=== PATIENT | female | born 1970 | race Caucasian/White ===

== ENCOUNTER → 2018-12-16 22:33 | Outpatient (CLI) | payer BC, SELFPAY ==
[2018-12-16 23:02] LABS: Thyroid Stim Hormone (TSH) 2.43 uIU/mL (0.358-3.74)
== END ==
PROVIDERS: Family Provider Family Medicine; PCP Family Medicine; Referring Provider Nurse Practitioner; Visit Provider Nurse Practitioner
DX: E03.9 Hypothyroidism, unspecified (principal)
CPT/HCPCS: 84443

== ENCOUNTER → 2020-01-20 | Outpatient (CLI) | payer BC, SELFPAY ==
[2020-01-20 21:28] LABS: Thyroid Stim Hormone (TSH) 1.39 uIU/mL (0.358-3.74)
== END | disposition home or self-care (01) ==
PROVIDERS: PCP Family Medicine; Referring Provider Nurse Practitioner; Visit Provider Nurse Practitioner
DX: E03.9 Hypothyroidism, unspecified (principal)
CPT/HCPCS: 84443

== ENCOUNTER → 2020-07-05 | Outpatient (CLI) | payer BC, SELFPAY ==
[2020-07-05 16:12] VITALS: BMI 26.0
[2020-07-05 22:06] LABS: Absolute Lymphocyte Count 2.24 X10^3/uL (0.83-4.51); Absolute Neutrophil Count 3.1 X10^3/uL (2.0-7.7); Basophil# 0.05 X10^3/uL; Basophil% 0.8 % (0-1); Eosinophil# 0.15 X10^3/uL; Eosinophils% 2.5 % (0-5); Hematocrit 42.7 % (37-47); Hemoglobin 14.2 g/dL (12.0-15.0); Lymphocyte # 2.24 X10^3/ul (4.0); Lymphocyte % 37.7 % (19-41); Mean Corp Hgb Conc 33.3 g/dL (32-36); Mean Corpuscular Volume 90.1 fL (81-99); Mean Platelet Vol. 10.1 fl (6.2-12.0); Monocyte# 0.37 X10^3/uL; Monocyte% 6.2 % (0-10); NRBC Flagged by Analyzer 0 % (0-5); Neutrophil % 52.3 % (47-70); Platelet Count 251 K/mm3 (150-450); RBC Distribution Width CV 12.6 % (11.6-14.6); RBC Distribution Width SD 41.3 fl (35.1-43.9); Red Blood Count 4.74 M/mm3 (4.2-5.4); White Blood Count 5.9 K/mm3 (4.4-11.0)
[2020-07-05 22:29] LABS: ALB/GLOB Ratio 1.2 RATIO (0.9-2.4); AST(SGOT) 23 U/L (15-37); Alanine Aminotransfer ALT/SGPT 32 U/L (13-56); Albumin, Serum 4.2 g/dL (3.2-5.0); Alkaline Phosphatase 104 U/L (45-117); Anion Gap 8 (5-15); BUN 14 mg/dL (7-18); BUN/Creat Ratio 16.6 RATIO (10-20); Calcium,Total 9.6 mg/dL (8.5-10.1); Chloride 106 mmol/L (98-107); Cholesterol 287 mg/dL (200); Creatinine, Serum 0.84 mg/dL (0.55-1.02); EST Glomerular Filtration Rate 76 mL/min (>60); Est Glom Filt Rate - Afr Amer 92 mL/min (>60); Globulin 3.5 g/dL (2.2-4.2); Glucose 91 mg/dL (74-106); High Density Lipoprotein 50 mg/dL; Protein, Total 7.7 g/dL (6.4-8.2); Sodium Level 139 mmol/L (136-145); Thyroid Stim Hormone (TSH) 1.41 uIU/mL (0.358-3.74); Triglycerides 247 mg/dL; Very Low Density Lipoprotein 49 mg/dL (5-40)
== END | disposition home or self-care (01) ==
PROVIDERS: PCP Family Medicine; Visit Provider Nurse Practitioner
DX: I10 Essential (primary) hypertension (principal); E03.9 Hypothyroidism, unspecified
CPT/HCPCS: 80053; 80061; 84443; 85025

== ENCOUNTER → 2021-01-24 21:27 | Outpatient (CLI) | payer BC, SELFPAY ==
[2021-01-24 16:15] VITALS: BMI 25.1
[2021-01-24 21:56] LABS: Cholesterol 259 mg/dL (200); High Density Lipoprotein 48 mg/dL; Thyroid Stim Hormone (TSH) 1.39 uIU/mL (0.358-3.74); Triglycerides 277 mg/dL; Very Low Density Lipoprotein 55 mg/dL (5-40)
== END ==
PROVIDERS: PCP Family Medicine; Visit Provider Nurse Practitioner
DX: E78.5 Hyperlipidemia, unspecified (principal); E03.9 Hypothyroidism, unspecified
CPT/HCPCS: 80061; 84443

== ENCOUNTER → 2022-01-23 | Outpatient (CLI) | payer BC, SELFPAY ==
[2022-01-23 21:29] LABS: Absolute Lymphocyte Count 1.91 X10^3/uL (0.83-4.51); Absolute Neutrophil Count 2.9 X10^3/uL (2.0-7.7); Basophil# 0.04 X10^3/uL; Basophil% 0.8 % (0-1); Eosinophil# 0.09 X10^3/uL; Eosinophils% 1.7 % (0-5); Hematocrit 42.9 % (37-47); Hemoglobin 14.4 g/dL (12.0-15.0); Lymphocyte # 1.91 X10^3/ul (0.83-4.51); Lymphocyte % 35.9 % (19-41); Mean Corp Hgb Conc 33.6 g/dL (32-36); Mean Corpuscular Hgb 30.2 pg (27.0-32.0); Mean Corpuscular Volume 89.9 fL (81-99); Mean Platelet Vol. 9.9 fl (6.2-12.0); Monocyte# 0.36 X10^3/uL; Monocyte% 6.8 % (0-10); NRBC Flagged by Analyzer 0 % (0-5); Neutrophil # 2.89 X10^3/uL (2.7-7.7); Neutrophil % 54.2 % (47-70); Platelet Count 228 K/mm3 (150-450); RBC Distribution Width CV 12.8 % (11.6-14.6); RBC Distribution Width SD 41.8 fl (35.1-43.9); Red Blood Count 4.77 M/mm3 (4.2-5.4); White Blood Count 5.3 K/mm3 (4.4-11.0)
[2022-01-23 22:26] LABS: ALB/GLOB Ratio 1.2 RATIO (0.9-2.4); AST(SGOT) 23 U/L (15-37); Alanine Aminotransfer ALT/SGPT 38 U/L (13-56); Albumin, Serum 4.4 g/dL (3.2-5.0); Alkaline Phosphatase 95 U/L (45-117); Anion Gap 8 (5-15); BUN 19 mg/dL (7-18); BUN/Creat Ratio 20.5 RATIO (10-20); Calcium,Total 9.3 mg/dL (8.5-10.1); Chloride 105 mmol/L (98-107); Cholesterol 196 mg/dL (200); Creatinine, Serum 0.93 mg/dL (0.55-1.02); EST Glomerular Filtration Rate 68 mL/min (>60); Est Glom Filt Rate - Afr Amer 82 mL/min (>60); Globulin 3.7 g/dL (2.2-4.2); Glucose 97 mg/dL (74-106); High Density Lipoprotein 57 mg/dL; Potassium 3.6 mmol/L (3.5-5.1); Protein, Total 8.1 g/dL (6.4-8.2); Sodium Level 139 mmol/L (136-145); Triglycerides 194 mg/dL; Very Low Density Lipoprotein 39 mg/dL (5-40)
== END | disposition home or self-care (01) ==
PROVIDERS: PCP Family Medicine; Referring Provider Nurse Practitioner; Visit Provider Nurse Practitioner
DX: I10 Essential (primary) hypertension (principal); E03.9 Hypothyroidism, unspecified
CPT/HCPCS: 80053; 80061; 84443; 85025

== ENCOUNTER → 2022-06-07 | Outpatient (CLI) | payer BC, SELFPAY ==
--- NOTE | 2022-06-07 12:50 | BI_ITS ---
MAMMOGRAPHY - UNILATERAL SCREENING: LEFT BREAST REASON FOR EXAM: Female, 51 years old. Routine annual screening examination (unilateral). PERTINENT HISTORY: Non-contributory. TECHNIQUE: Digital unilateral breast lionel (3D mammographic acquisition) in the CC and MLO projections. 2-D mediolateral oblique (MLO) and craniocaudad (CC) views of both breasts were obtained. CAD: Full Field Digital Mammography with Computer Added Detection was performed. COMPARISON: Comparison is made with prior study dated 09/23/2010. FINDINGS: Breast Composition: The breasts are heterogeneously dense, which may obscure small masses. There are no dominant masses or suspicious calcifications. Stable small benign-appearing bilateral axillary No other significant abnormalities are identified. There has been no significant change since the prior study. BI/SCREEN MAMM (CAD) W/LIONEL UNI L IMPRESSION: Stable unilateral screening mammogram. Yearly follow-up mammogram recommended. (A) ASSESSMENT CATEGORY: BIRADS Category 2: Benign. A letter regarding these results will be sent to the patient by the facility within 30 days. Approximately 10% of breast cancers are not detected by mammography. A normal mammogram should not delay biopsy of a clinically suspicious abnormality. [id number] Electronically Signed: Dominick Roman MD at 15:21 EDT ,
== END | disposition home or self-care (01) ==
LOC: OPBI 12:48
PROVIDERS: PCP Family Medicine; Referring Provider Nurse Practitioner; Visit Provider Nurse Practitioner
DX: Z12.31 Encounter for screening mammogram for malignant neoplasm of breast (principal)
CPT/HCPCS: 77063; 77067

== ENCOUNTER 2022-09-11 13:00 | Outpatient (RCR) | payer BC, SELFPAY ==
--- NOTE | 2022-07-03 15:50 | HP.OTEVAL ---
Patient's Visit Information DORA BROWNING is a 51 year old F, referred to Occupational Therapy by Dr. Juan Myrick MD, with a diagnosis of Unilateral osteoarthritis R hand. Date of Evaluation: 07/03/22 Occupational Therapist: Farnaz Khan - Subjective Dora arrived on time for her initial occupational evaluation s/p R CMC arthoplasty 06/22/[address] Juan Myrick. Dora presents with mild pain (4/10), some stiffness and bruising in the CMC and hand region, and some mild numbness that is extending through the fingers. Dora lives with her son and , her son has been helping her as needed during the day. She is currently not working. 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 She reports she has a 4-5 hr job at one house and a 2 hour job at another house. - ADLs Comments: Dora is completing self care mostly with modified independence. Her son assists as needed with things around the house, opening containers, cooking, laundry, etc. - Pain R CMC 4 - Objective Dora presents with some swelling and bruising in the R hand/wrist region. Her incision is closed and no signs of redness or irritation around the incision site. 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 L tripod: 9. L pincer: 7. L lateral: 12 - Edema PIP: 3rd digit R 6.3 cm; 3rd digit L 5.7cm Other: circumference R MCP 16.5cm; L MCP 16cm - Sensation Sensation Comments: reports some numbness in R hand/wrist region that extends through the fingers - Quick DASH-Disab of Arm,Shoulder& Hand Quick DASH Score: 75.0000 - Goals Goal:100% adherence to protocol: Yes Comment: Dr. Juan Myrick CMC arthoplasty protocol Goal:Daily scar massage when approriate: Yes Goal:ROM equal to unaffected hand: Yes Goal:Lard Bleacher/Pinch strength at least 75% of unaffected hand: Yes Comment: strengthening to be initiated when appropriate given Dr. Myrick protocol Goal:No pain with affected hand use: Yes Goal:PIP Circumferences equal to unaffected hand: Yes Goal:Full use of affected hand in daily activities including: Yes Goal:Decrease scar hypersensitivity: Yes - Rehabilitation General Assessment: Dora presents ~ 2 weeks s/p R CMC arthoplasty. She arrived in a thermoplastic brace that she has been wearing all the time. She presents with stiffness and soreness in the R wrist/hand region and some difficulty completing daily activities d/t restrictions of use of R wrist. She has decreased range of motion and strength in her right hand and wrist. She participated in the evaluation to assess baseline range of motion, edema, and strength. She was provided a home exercise program and education on protocol for recovery from this surgery. She will be scheduled 1x/week for 12 weeks. Rehabilitation Potential: Good - Anticipated Interventions A/AAROM/PROM, Strengthening, Edema Control, Scar Care, Massage, Desensitization, Sensory Retraining, Orthoses, Joint Protection/Energy Conservation, Fine Motor Coord/Chavo, ADL Training, Home Program - Visit Plan Frequency: 1x/Week Duration: 3 Months General Plan: provided HEP with instruction to complete gentle wrist and hand ROM, recommend 6-8x/day. Rec to do something with the hand or wrist every hour to move it gently. Work the HEP on the table with gravity eliminated position of the wrist for a more gentle position. Cont HEP daily, gentle ROM, and splint wear. Will progress to more range of motion and strengthening when appropriate per CMC arthoplasty protocol. Will re-assess for comfort cool brace later in her recovery. TEXT: Thank you for the opportunity to evaluate your patient. For Medicare and Medicare HMO plans, please review the plan of care and approve it. It will need to be FAXED BACK to us at [phone] for Medicare purposes. Please let me know if there are questions or concerns regarding this plan of care. Physician Signature: Date:
--- NOTE | 2022-08-02 14:07 | OTREVAL_ITS ---
Dr. Juan Myrick MD, It has been my pleasure to treat DORA BROWNING over the last 6 visits for Unilateral osteoarthritis R hand. Please see the progress note below for an update on the occupational therapy plan of care! Subjective: Arrived s/p 6 weeks and 6 days past CMC arthoplasty. Continues to work 2-3 hours/week. Still having rawness and soreness around the incision site. Has f/u with physician tomorrow 08/03/22. Objective/Function: Patient consistently coming to therapy and being compliant with therapy. She is consistently reporting some rawness/skin sensitivity at the incision site, unable to wear the comfort cool brace due to discomfort. She reports feeling some sharp/shooting pain through the thumb and the middle of the wrist at times, especially in the evenings. She is making slow progress with her wrist and thumb range of motion. R wrist active flexion 30/extension 28 (~5-10 deg improvement from last visit). Thumb MP active flexion 40 deg and IP active flexion 45. Stiffness through the CMC and unable to oppose to 5th digit. Provided with home exercise program and instruction on safe ways to move hand/wrist to improve ROM and stiffness including starting some light weight/resistance within her tolerance. Working in therapy on improving range of motion, stiffness, and beginning strengthening. Plan Frequency: 1x/Week Duration: 3 Months Visits in this POC: no limit with medical necessity Plan: follow Dr. Myrick CMC arthroplasty guide. 2weeks s/p custom thumb spica IPJ free. scar care, full finger ROM, full wrist ROM , MP and IPJ motion of thumb, Opposition to small finger while supporting CMC to prevent rocking at base of thumb and hand flat. 4wks s/p PROM cmc motion. 5-6wks pre-layne thumb orthotic daytime use -custom orthosis use and night and with heavy activity until 12 weeks s/p. 6-7wks strengthening. at [address] jeffery full finger & wrist motion- hand flat and opposition to small finger between DIPJ & PIPJ. Discontinue custom orthosis use at 12 weeks Goals - Goals Patient Goals: Regain Strength, Return to Work, Decrease Swelling/Stiffness, Improve Fine Motor Skills, Use Hand/Wrist/Arm Normally Again, Decrease Tingling/Numbness, Learn to Manage Lymphedema, Increase ROM, Be More Independent in ADLS, Decrease Sensitivity, Resume Former Household Responsibilities (Cooki ng,Cleaning,Yard, etc.), Resume Hobbies Goal:100% adherence to protocol: Yes Goal:Daily scar massage when approriate: Yes Goal:ROM equal to unaffected hand: Yes Goal:Campus Administrator/Pinch strength at least 75% of unaffected hand: Yes Goal:No pain with affected hand use: Yes Goal:PIP Circumferences equal to unaffected hand: Yes Goal:Full use of affected hand in daily activities including: Yes Goal:Decrease scar hypersensitivity: Yes Anticipated Interventions Anticipated Interventions: A/AAROM/PROM, Strengthening, Edema Control, Scar Care, Massage, Desensitization, Sensory Retraining, Orthoses, Joint Protection/Energy Conservation, Fine Motor Coord/Chavo, ADL Training, Home Program Please do not hesitate to contact me at [phone] by phone or if you have questions or concerns regarding this new plan of care! Sincerely, Farnaz Khan
--- NOTE | 2022-12-11 16:18 | HP.OT.NRP ---
DORA Hill DONNA BROWNING was seen in my office for initial evaluation on 07/03/22. The following Plan of Care was established for this patient: Initial Frequency: 1x/Week Initial Duration: 3 Months Plan: follow Dr. Myrick CMC arthroplasty guide. 2weeks s/p custom thumb spica IPJ free. scar care, full finger ROM, full wrist ROM , MP and IPJ motion of thumb, Opposition to small finger while supporting CMC to prevent rocking at base of thumb and hand flat. 4wks s/p PROM cmc motion. 5-6wks pre-layne thumb orthotic daytime use -custom orthosis use and night and with heavy activity until 12 weeks s/p. 6-7wks strengthening. at [address] jeffery full finger & wrist motion- hand flat and opposition to small finger between DIPJ & PIPJ. Discontinue custom orthosis use at 12 weeks Anticipated Interventions: A/AAROM/PROM, Strengthening, Edema Control, Scar Care, Massage, Desensitization, Sensory Retraining, Orthoses, Joint Protection/Energy Conservation, Fine Motor Coord/Chavo, ADL Training, Home Program This patient was last seen in our office 09/11/22. Pertinent comments regarding their Occupational therapy will appear below: Patient last seen in September and no showed final appt. Patient has not reached out to clinic to reschedule or for any follow up appointments. Patient discharged from OT at this time. At this point I will be discontinuing this patient from occupational therapy. I would be happy to see this patient again in the future if found appropriate by the physician. Thank you! Farnaz Khan
== END 2022-09-11 19:00 | disposition home or self-care (01) ==
LOC: OT 13:00
PROVIDERS: PCP Nurse Practitioner; Referring Provider Orthopaedic Surgery; Visit Provider Orthopaedic Surgery
DX: M18.11 Unilateral primary osteoarthritis of first carpometacarpal joint, right hand (principal)
CPT/HCPCS: 97035; 97110; 97140; 97165; 97530; 97763

== ENCOUNTER → 2023-01-22 | Outpatient (CLI) | payer BC, SELFPAY ==
[2023-01-22 22:57] LABS: Absolute Lymphocyte Count 2.35 X10^3/uL (0.83-4.51); Absolute Neutrophil Count 3.1 X10^3/uL (2.0-7.7); Basophil# 0.07 X10^3/uL; Basophil% 1.1 % (0-1); Eosinophils% 1.6 % (0-5); Hematocrit 42.3 % (37-47); Lymphocyte # 2.35 X10^3/ul (0.83-4.51); Mean Corp Hgb Conc 33.1 g/dL (32-36); Mean Corpuscular Hgb 30.2 pg (27.0-32.0); Mean Corpuscular Volume 91.4 fL (81-99); Monocyte# 0.49 X10^3/uL; Monocyte% 7.9 % (0-10); NRBC Flagged by Analyzer 0 % (0-5); Neutrophil # 3.11 X10^3/uL (2.7-7.7); Neutrophil % 50.4 % (47-70); Platelet Count 252 K/mm3 (150-450); RBC Distribution Width CV 12.6 % (11.6-14.6); RBC Distribution Width SD 41.6 fl (35.1-43.9); Red Blood Count 4.63 M/mm3 (4.2-5.4); White Blood Count 6.2 K/mm3 (4.4-11.0)
[2023-01-22 23:16] LABS: ALB/GLOB Ratio 1.3 RATIO (0.9-2.4); AST(SGOT) 22 U/L (15-37); Alanine Aminotransfer ALT/SGPT 34 U/L (13-56); Albumin, Serum 4.3 g/dL (3.2-5.0); Alkaline Phosphatase 89 U/L (45-117); Anion Gap 6 (5-15); BUN 16 mg/dL (7-18); BUN/Creat Ratio 22.5 RATIO (10-20); Calcium,Total 9.4 mg/dL (8.5-10.1); Chloride 105 mmol/L (98-107); Cholesterol 181 mg/dL (200); Creatinine, Serum 0.71 mg/dL (0.55-1.02); EST Glomerular Filtration Rate 91 mL/min (>60); Est Glom Filt Rate - Afr Amer 111 mL/min (>60); Globulin 3.4 g/dL (2.2-4.2); Glucose 91 mg/dL (74-106); High Density Lipoprotein 58 mg/dL; Potassium 4.4 mmol/L (3.5-5.1); Protein, Total 7.7 g/dL (6.4-8.2); Sodium Level 139 mmol/L (136-145); Thyroid Stim Hormone (TSH) 1.04 uIU/mL (0.358-3.74); Triglycerides 94 mg/dL; Very Low Density Lipoprotein 19 mg/dL (5-40)
== END | disposition home or self-care (01) ==
PROVIDERS: PCP Nurse Practitioner; Visit Provider Nurse Practitioner
DX: E03.9 Hypothyroidism, unspecified (principal); I10 Essential (primary) hypertension
CPT/HCPCS: 80053; 80061; 84443; 85025

== ENCOUNTER → 2024-01-28 | Outpatient (CLI) | payer BC, SELFPAY ==
[2024-01-28 22:22] LABS: Absolute Lymphocyte Count 1.84 X10^3/uL (0.83-4.51); Absolute Neutrophil Count 3.6 X10^3/uL (2.0-7.7); Basophil# 0.04 X10^3/uL; Basophil% 0.7 % (0-1); Eosinophil# 0.12 X10^3/uL; Hemoglobin 13.4 g/dL (12.0-15.0); Lymphocyte # 1.84 X10^3/ul (0.83-4.51); Lymphocyte % 30.6 % (19-41); Mean Corp Hgb Conc 33.5 g/dL (32-36); Mean Corpuscular Volume 89.7 fL (81-99); Mean Platelet Vol. 10.2 fl (6.2-12.0); Monocyte# 0.42 X10^3/uL; NRBC Flagged by Analyzer 0 % (0-5); Neutrophil # 3.57 X10^3/uL (2.7-7.7); Neutrophil % 59.2 % (47-70); Platelet Count 252 K/mm3 (150-450); RBC Distribution Width CV 12.5 % (11.6-14.6); RBC Distribution Width SD 41.3 fl (35.1-43.9); Red Blood Count 4.46 M/mm3 (4.2-5.4)
[2024-01-28 22:44] LABS: ALB/GLOB Ratio 1.2 RATIO (0.9-2.4); AST(SGOT) 21 U/L (15-37); Alanine Aminotransfer ALT/SGPT 36 U/L (13-56); Albumin, Serum 4.2 g/dL (3.2-5.0); Alkaline Phosphatase 96 U/L (45-117); Anion Gap 6 (5-15); BUN 17 mg/dL (7-18); BUN/Creat Ratio 21.5 RATIO (10-20); Calcium,Total 9.1 mg/dL (8.5-10.1); Chloride 107 mmol/L (98-107); Cholesterol 174 mg/dL (200); Creatinine, Serum 0.79 mg/dL (0.55-1.02); EST Glomerular Filtration Rate 80 mL/min (>60); Est Glom Filt Rate - Afr Amer 97 mL/min (>60); Globulin 3.4 g/dL (2.2-4.2); Glucose 114 mg/dL (74-106); High Density Lipoprotein 54 mg/dL; Potassium 3.7 mmol/L (3.5-5.1); Protein, Total 7.6 g/dL (6.4-8.2); Sodium Level 138 mmol/L (136-145); Thyroid Stim Hormone (TSH) 1.89 uIU/mL (0.358-3.74); Triglycerides 183 mg/dL; Very Low Density Lipoprotein 37 mg/dL (5-40)
== END | disposition home or self-care (01) ==
PROVIDERS: PCP Nurse Practitioner; Referring Provider Nurse Practitioner; Visit Provider Nurse Practitioner
DX: E03.9 Hypothyroidism, unspecified (principal); I10 Essential (primary) hypertension; M15.9 Polyosteoarthritis, unspecified
CPT/HCPCS: 80053; 80061; 84443; 85025

== ENCOUNTER → 2025-01-27 | Outpatient (CLI) | payer BC, SELFPAY ==
[2025-01-27 22:33] LABS: Absolute Lymphocyte Count 2.18 X10^3/uL (0.83-4.51); Absolute Neutrophil Count 4.1 X10^3/uL (2.0-7.7); Basophil# 0.04 X10^3/uL; Basophil% 0.6 % (0-1); Eosinophil# 0.18 X10^3/uL; Eosinophils% 2.6 % (0-5); Hemoglobin 13.3 g/dL (12.0-15.0); Lymphocyte # 2.18 X10^3/ul (0.83-4.51); Lymphocyte % 30.9 % (19-41); Mean Corp Hgb Conc 34.1 g/dL (32-36); Mean Corpuscular Volume 90.9 fL (81-99); Mean Platelet Vol. 10.2 fl (6.2-12.0); Monocyte# 0.48 X10^3/uL; Monocyte% 6.8 % (0-10); NRBC Flagged by Analyzer 0 % (0-5); Neutrophil # 4.14 X10^3/uL (2.7-7.7); Neutrophil % 58.7 % (47-70); Platelet Count 235 K/mm3 (150-450); RBC Distribution Width CV 13.1 % (11.6-14.6); RBC Distribution Width SD 42.9 fl (35.1-43.9); Red Blood Count 4.29 M/mm3 (4.2-5.4); White Blood Count 7.1 K/mm3 (4.4-11.0)
--- OUTSIDE RECORDS SUMMARY | 2025-01-27 22:40 | XMS RPT_ITS | CCD ---
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 Role Phone Rylie Frausto NP Referring Unavailable Rylie Frausto NP Attending Unavailable Rylie Frausto NP Primary Care Unavailable Allergies Allergy Classification Reported Allergen(s) Allergy Type Date of Onset Reaction(s) Facility (3 sources) Amoxicillin Drug Allergy 9 diarrhea and cramping [facility] (3 sources) Clavulanate Drug Allergy 9 diarrhea and craing [facility] (1 source) Amoxicillin Drug Allergy 9 [facility] Repository (1 source) Clavulanate Drug Allergy 9 [facility] Medications Current Medications Medication Drug Class(es) Dates Sig (Normalized) Sig (Original) atorvastatin 40 mg oral tablet (10 sources) HMG-CoA Reductase Inhibitor Start: 01-25-2021 End: 01-22-2023 take 40 mg by mouth once daily Atorvastatin Active 40 MG PO DAILY January 22, 2023 5:11pm Start: 07-27-2020 End: 01-25-2021 take 20 mg by mouth once daily Atorvastatin Discontinu ed 20 MG PO DAILY July 27, 2020 1:00am January 25, 2021 12:46pm levothyroxine sodium 0.05 mg oral tablet (16 sources) l-Thyroxine Start: 12-16-2018 End: 01-23-2023 take 50 ug by mouth once daily Levothyroxine Active 50 MCG PO DAILY January 23, 2023 12:49pm losartan potassium 50 mg oral tablet (10 sources) Angiotensin 2 Receptor Masoud Start: 01-24-2021 End: 01-22-2023 take 50 mg by mouth once daily Losartan Active 50 MG PO DAILY January 22, 2023 5:11pm meloxicam 15 mg oral tablet (1 source) Nonsteroidal Anti-inflammatory Drug Start: 01-22-2023 take 15 mg by mouth once daily Meloxicam Active 15 MG PO daily January 22, 2023 12:00am Completed/Discontinued Medications Medication Drug Class(es) Dates Sig (Normalized) Sig (Original) cefuroxime 250 mg oral tablet (3 sources) Cephalosporin Antibacterial Start: 12-16-2018 End: 06-02-2020 take 250 mg by mouth twice daily Cefuroxime Axetil Discontinued 250 MG PO TWICE A DAY December 16, 2018 12:00am June 02, 2020 4:22pm hydroCHLOROthiazide 12.5 mg / lisinopril 10 mg oral tablet (6 sources) Thiazide Diuretic, Angiotensin Converting Enzyme Inhibitor Start: 07-05-2020 End: 01-24-2021 take 1 tablet by mouth once daily Lisinopril-Alva chlorothiazide Discontinued 1 TABLET PO DAILY July 27, 2020 3:42pm January 24, 2021 4:18pm mupirocin 0.02 mg/mg topical ointment (3 sources) RNA Synthetase Inhibitor Antibacterial Start: 06-02-2020 End: 01-23-2022 Mupirocin Discontinued 1 APPLIC TOPICAL THREE TIMES A DAY June 02, 2020 12:00am January 23, 2022 4:39pm predniSONE 20 mg oral tablet (3 sources) Start: 06-13-2020 End: 06-18-2020 take 40 mg by mouth once daily Prednisone Discontinued 40 MG PO DAILY 05 10June 13, 2020 1:00am June 18, 2020 1:03am sulfamethoxazole 800 mg / trimethoprim 160 mg oral tablet (3 sources) Dihydrofolate Reductase Inhibitor Antibacterial, Sulfonamide Antimicrobial Start: 06-02-2020 End: 06-12-2020 take 1 tablet by mouth twice daily Sulfamethoxazole -Trimethoprim Discontinued 1 TABLET PO TWICE A DAY 25 05June 02, 2020 12:00am June 12, 2020 1:03am Problems Active Problems Problem Classification Problem Date Documented Date Episodic/Chronic Diseases of mouth; excluding dental (3 sources) Painful mouth; Translations: [Other lesions of oral mucosa] 06-02-2020 Episodic Essential hypertension (3 sources) Hypertensive disorder; Translations: [Essential (primary) hypertension] 07-05-2020 Chronic Infective arthritis and osteomyelitis (except that caused by tuberculosis or sexually transmitted disease) (1 source) Reactive arthropathy of wrist; Translations: [Reactive arthropathy, unspecified] 01-22-2023 Chronic Osteoarthritis (1 source) Osteoarthritis of multiple joints ; Translations: [Polyosteoarthritis, unspecified] 01-22-2023 Chronic Other connective tissue disease (1 source) Dupuytren's disease; 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]] Episodic Other connective tissue disease (2 sources) Musculoskeletal fibromatosis; 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]] 01-24-2021 Episodic Other inflammatory condition of skin (3 sources) Perioral dermatitis; Translations: [Perioral dermatitis] 06-02-2020 Chronic Other lower respiratory disease (3 sources) Cough; Translations: [Cough] 12-16-2018 Episodic Other screening for suspected conditions (not mental disorders or infectious disease) (3 sources) Patient encounter status; Translations: [Encounter for screening mammogram for malignant neoplasm of breast] 01-23-2022 Episodic Other upper respiratory infections (3 sources) Acute maxillary sinusitis; Translations: [Acute maxillary sinusitis, unspecified] 12-16-2018 Episodic Thyroid disorders (4 sources) Hypothyroidism; Translations: [Hypothyroidism, unspecified] Onset: 02-01-2024 01-20-2020 Chronic Past or Other Problems Problem Classification Problem Date Documented Da te Episodic/Chronic Unclassified (2 sources) C SECT X2 02-23-2022 Unclassified (2 sources) FIBROID REMOVED OCTOBER 2012 02-23-2022 Unclassified (2 sources) IUD ASSURES (COILS) HAS HAD MANY INFECTIONS 02-23-2022 Results Test Name Value Interpretation Reference Range Facility CBC W/Diff, Automatedon 01-05 Absolute Lymph 1.84 X10 3/uL Normal 0.83-4.51 [facility] Comment on above: Performed By: #### L 100.0100, L500.4050, L500.4100, [id number] #### [facility] [address] [place], [place], [id number] Absolute Neut 3.6 X10 3/uL Normal 2.0-7.7 [facility] Comment on above: Performed By: #### L 100.0100, L500.4050, L500.4100, [id number] #### [facility] [address] [place], [address] Basophils/100 WBC (Bld) 0.7 % Normal 0-1 [facility] Comment on above: Performed By: #### L 100.0100, L500.4050, L500.4100, [id number] #### [facility] [address] [place], [address] Eosinophils/100 WBC (Bld) 2.0 % Normal 0-5 [facility] Comment on above: Performed By: #### L 100.0100, L500.4050, L500.4100, [id number] #### [facility] [address] [place], [address] Erythrocyte distribution width (RBC) [Ratio] 12.5 % Normal 11.6-14.6 [facility] Comment on above: Performed By: #### L 100.0100, L500.4050, L500.4100, [id number] #### [facility] [address] [place], [address] Hematocrit (Bld) [Volume fraction] 40.0 % Normal 37-47 [facility] Comment on above: Performed By: #### L 100.0100, L500.4050, L500.4100, [id number] #### [facility] [address] [place], [address] Hemoglobin (Bld) [Mass/Vol] 13.4 g/dL Normal 12.0-15.0 [facility] Comment on above: Performed By: #### L 100.0100, L500.4050, L500.4100, [id number] #### [facility] [address] [place], [address] IG% 0.500 Normal 0.0-0.9 [facility] Comment on above: Result Comment: IG% - Immature Granulocytes (promyelocytes, myelocytes and metamyelocytes) > 1% indicates that a LEFT SHIFT is Present. Performed By: #### L 100.0100, L500.4050, L500.4100, [id number] #### [facility] [address] [place], [address] Lymphocytes/100 WBC (Bld) 30.6 % Normal 19-41 [facility] Comment on above: Performed By: #### L 100.0100, L500.4050, L500.4100, [id number] #### [facility] [address] [place], [address] MCH (RBC) [Entitic mass] 30.0 pg Normal 27.0-32.0 [facility] Comment on above: Performed By: #### L 100.0100, L500.4050, L500.4100, [id number] #### [facility] [address] [place], [address] MCHC (RBC) [Mass/Vol] 33.5 g/dL Normal 32-[address] [facility] Comment on above: Performed By: #### L 100.0100, L500.4050, L500.4100, [id number] #### [facility] [address] [place], [address] MCV (RBC) [Entitic vol] 89.7 fL Normal 81-99 [facility] Comment on above: Performed By: #### L 100.0100, L500.4050, L500.4100, [id number] #### [facility] [address] [place], [address] Monocytes/100 WBC (Bld) 7.0 % Normal 0-10 [facility] Comment on above: Performed By: #### L 100.0100, L500.4050, L500.4100, [id number] #### [facility] [address] [place], [address] Neutrophils/100 WBC (Bld) 59.2 % Normal 47-70 [facility] Comment on above: Performed By: #### L 100.0100, L500.4050, L500.4100, [id number] #### [facility] [address] [place], [address] Nucleated RBC (Bld) [#/Vol] 0 10*3/uL Normal 0-5 [facility] Comment on above: Performed By: #### L 100.0100, L500.4050, L500.4100, [id number] #### [facility] [address] [place], [address] Platelet mean volume (Bld) [Entitic vol] 10.2 fL Normal 6.2-12.0 [facility] Comment on above: Performed By: #### L 100.0100, L500.4050, L500.4100, [id number] #### [facility] [address] [place], [address] Platelets (Bld) [#/Vol] 252 10*3/uL Normal 150-450 [facility] Comment on above: Performed By: #### L 100.0100, L500.4050, L500.4100, [id number] #### [facility] [address] [place], [address] RBC (Bld) [#/Vol] 4.46 10*6/uL Normal 4.2-5.4 [facility] Comment on above: Performed By: #### L 100.0100, L500.4050, L500.4100, [id number] #### [facility] [address] [place], [address] RDW SD 41.3 fl Normal 35.1-43.9 [facility] Comment on above: Performed By: #### L 100.0100, L500.4050, L500.4100, [id number] #### [facility] [address] [place], [address] WBC (Bld) [#/Vol] 6.0 10*3/uL Normal 4.4-11.0 [facility] Comment on above: Performed By: #### L 100.0100, L500.4050, L500.4100, [id number] #### [facility] [address] [place], [address] Comprehensive Metabolic Prof [facility] 01-28-2024 Albumin [Mass/Vol] 4.2 g/dL Normal 3.2-5.0 [facility] Comment on above: Performed By: #### L 100.0100, L500.4050, L500.4100, [id number] #### [facility] [address] [place], [address] Albumin/Globulin [Mass ratio] 1.2 {ratio} Normal 0.9-2.4 [facility] Comment on above: Performed By: #### L 100.0100, L500.4050, L500.4100, [id number] #### [facility] [address] [place], [address] ALK P 96 U/L Normal 45-117 [facility] Comment on above: Performed By: #### L 100.0100, L500.4050, L500.4100, [id number] #### [facility] [address] [place], [address] ALT [Catalytic activity/Vol] 36 U/L Normal 13-56 [facility] Comment on above: Performed By: #### L 100.0100, L500.4050, L500.4100, [id number] #### [facility] [address] [place], [address] AST [Catalytic activity/Vol] 21 U/L Normal 15-37 [facility] Comment on above: Performed By: #### L 100.0100, L500.4050, L500.4100, [id number] #### [facility] [address] [place], [address] Bilirubin [Mass/Vol] 0.70 mg/dL Normal 0.20-1.00 [facility] Comment on above: Result Comment: For patients on eltrombopag therapy, use of Dimension [place] TBIL is not recommended. Performed By: #### L 100.0100, L500.4050, L500.4100, [id number] #### [facility] [address] [place], [address] BUN/CRE 21.5 RATIO High 10-20 [facility] Comment on above: Performed By: #### L 100.0100, L500.4050, L500.4100, [id number] #### [facility] [address] [place], [address] CA,Total 9.1 mg/dL Normal 8.5-10.1 [facility] Comment on above: Performed By: #### L 100.0100, L500.4050, L500.4100, [id number] #### [facility] [address] [place], [address] Chloride [Moles/Vol] 107 mmol/L Normal 98-107 [facility] Comment on above: Performed By: #### L 100.0100, L500.4050, L500.4100, [id number] #### [facility] [address] [place], [address] CO2 [Moles/Vol] 25.0 mmol/L Normal 21.0-32.0 [facility] Comment on above: Performed By: #### L 100.0100, L500.4050, L500.4100, [id number] #### [facility] [address] [place], [address] Creatinine [Mass/Vol] 0.79 mg/dL Normal 0.55-1.[address] [facility] Comment on above: Result Comment: The validity of the calculated GFR GFRAA in patients over 70 years has not been determined. Clinical correlation is essential. Performed By: #### L 100.0100, L500.4050, L500.4100, [id number] #### [facility] [address] [place], [address] EST GFR - AA 97 mL/min Normal >60 [facility] Comment on above: Result Comment: Afri can [place]ut[place] GFR Calc Performed By: #### L 100.0100, L500.4050, L500.4100, [id number] #### [facility] [address] [place], [address] GAP 6 Normal 5-15 [facility] Comment on above: Performed By: #### L 100.0100, L500.4050, L500.4100, [id number] #### [facility] [address] [place], [address] GFR/1.73 sq M.predicted among non-blacks MDRD (S/P/Bld) [Vol rate/Area] 80 mL/min/{1.73_m2} Normal >60 [facility] Comment on above: Result Comment: Non- GFR Calc Performed By: #### L 100.0100, L500.4050, L500.4100, [id number] #### [facility] [address] [place], [address] Globulin (S) [Mass/Vol] 3.4 g/dL Normal 2.2-4.2 [facility] Comment on above: Performed By: #### L 100.0100, L500.4050, L500.4100, [id number] #### [facility] [address] [place], [address] Glucose [Mass/Vol] 114 mg/dL High 74-106 [facility] Comment on above: Result Comment: Fast ing Glucose result from 100 to 125 mg/dL suggests IMPAIRED HOMEOSTASIS per A.D.A. criteria. Performed By: #### L 100.0100, L500.4050, L500.4100, [id number] #### [facility] [address] [place], [address] Potassium [Moles/Vol] 3.7 mmol/L Normal 3.5-5.[address] [facility] Comment on above: Performed By: #### L 100.0100, L500.4050, L500.4100, [id number] #### [facility] [address] [place], [address] Sodium [Moles/Vol] 138 mmol/L Normal 136-145 [facility] Comment on above: Performed By: #### L 100.0100, L500.4050, L500.4100, [id number] #### [facility] [address] [place], [address] T PROT 7.6 g/dL Normal 6.4-8.2 [facility] Comment on above: Performed By: #### L 100.0100, L500.4050, L500.4100, [id number] #### [facility] [address] [place], [address] Urea nitrogen [Mass/Vol] 17 mg/dL Normal 7-18 [facility] Comment on above: Performed By: #### L 100.0100, L500.4050, L500.4100, [id number] #### [facility] [address] [place], [address] Lipid Profileon 01-28-2024 Cholesterol [Mass/Vol] 174 mg/dL Normal 200 [facility] Comment on above: Result Comment: <200 mg/dL Desirable 200-240 mg/dL Borderline >240 mg/dL High Risk Performed By: #### L 100.0100, L500.4050, L500.4100, [id number] #### [facility] [address] [place], [address] Cholesterol in HDL [Mass/Vol] 54 mg/dL Normal [facility] Comment on above: Result Comment: The drugs N-Acetylcysteine and Metamizole may falsely depress this assay. Reference Range HDL <40 mg/dL Low HDL Cholesterol HDL >or= 60 mg/dL High HDL Cholesterol Performed By: #### L 100.0100, L500.4050, L500.4100, [id number] #### [facility] [address] [place], [address] Cholesterol in LDL [Mass/Vol] 83 mg/dL Normal 0-130 [facility] Comment on above: Performed By: #### L 100.0100, L500.4050, L500.4100, [id number] #### [facility] [address] [place], [address] Cholesterol in VLDL [Mass/Vol] 37 mg/dL Normal 5-40 [facility] Comment on above: Performed By: #### L 100.0100, L500.4050, L500.4100, [id number] #### [facility] [address] [place], [address] Triglyceride [Mass/Vol] 183 mg/dL Normal [facility] Comment on above: Result Comment: The drugs N-Acetylcysteine and Metamizole may falsely depress this assay. Serum Triglycerides Reference Interval Normal <150 mg/dL Borderline high 150 - 199 mg/dL High 200 - 499 mg/dL Very High > or = 500 mg/dL Performed By: #### L 100.0100, L500.4050, L500.4100, [id number] #### [facility] [address] [place], [address] Thyroid Stim Hormone (TSH)on 01-28-2024 TSH 1.89 uIU/mL Normal 0.358-3.74 [facility] Comment on above: Performed By: #### L 100.0100, L500.4050, L500.4100, [id number] #### [facility] [address] [place] [place], [address] Absolute lymphocyte countOrd ered By: Rylie Frausto on 01-22-2023 Lymphocytes Auto (Unsp spec) [#/Vol] 2.35 10*3/uL 0.83-4.51 [facility] Basophil percentageOrdered B y: Rylie Frausto on 01-22-2023 Basophils/100 WBC (Bld) 1.1 % 0-1 [facility] Bilirubin [Mass/Vol] 0.50 mg/dL 0.20-1.00 [facility] Comment on above: For patients on eltr ombopag therapy, use of Dimension [place] TBIL is not recommended. Chloride [Moles/Vol] 105 mmol/L 98-107 [facility] Cholesterol [Mass/Vol] 181 mg/dL <200 [facility] Comment on above: <200 mg/dL Desirable 200-240 mg/dL Borderline >240 mg/dL High Risk Eosinophils/100 WBC (Bld) 1.6 % 0-5 [facility] Glucose [Mass/Vol] 91 mg/dL 74-106 [facility] Neutrophils (Bld) [#/Vol] 3.1 10*3/uL 2.0-7.7 [facility] Neutrophils/100 WBC (Bld) 50.4 % 47-70 [facility] Potassium [Moles/Vol] 4.4 mmol/L 3.5-5.[address] [facility] Protein [Mass/Vol] 7.7 g/dL 6.4-8.2 [facility] Sodium [Moles/Vol] 139 mmol/L 136-145 [facility] Triglyceride [Mass/Vol] 94 mg/dL <199 [facility] Comment on above: The drugs N-Acetylcy steine and Metamizole may falsely depress this assay.Serum Triglycerides Reference Interval Normal <150 mg/dL Borderline high 150 - 199 mg/dL High 200 - 499 mg/dL Very High > or = 500 mg/dL WBC (Bld) [#/Vol] 6.2 10*3/uL 4.4-11.0 [facility] Blood erythrocytes count (nu mber/volume)Ordered By: Rylie Frausto on 01-22-2023 RBC (Bld) [#/Vol] 4.63 10*6/uL 4.2-5.4 [facility] Blood hemoglobin measurement (mass/volume)Ordered By: Rylie Frausto on 01-22-2023 Hemoglobin (Bld) [Mass/Vol] 14.0 g/dL 12.0-15.0 [facility] Blood lymphocytes/100 leukoc ytesOrdered By: Rylie Frausto on 01-22-2023 Lymphocytes/100 WBC (Bld) 38.0 % 19-41 [facility] Blood monocytes/100 leukocyt esOrdered By: Rylie Frausto on 01-22-2023 Monocytes/100 WBC (Bld) 7.9 % 0-10 [facility] Blood platelet mean volumeOr dered By: Rylie Frausto on 01-22-2023 Platelet mean volume (Bld) [Entitic vol] 10.0 fL 6.2-12.0 [facility] Determination of erythrocyte mean corpuscular volume (MCV)Ordered By: Rylie Frausto on 01-22-2023 MCV (RBC) [Entitic vol] 91.4 fL 81-99 [facility] Hematocrit Auto (Bld) [Volum e fraction]Ordered By: Rylie Frausto on 01-22-2023 Hematocrit (Bld) [Volume fraction] 42.3 % 37-47 [facility] - Chemistry and C hemistry - challengeOrdered By: Rylie Frausto on 01-22-2023 ALP [Catalytic activity/Vol] 89 U/L 45-117 [facility] ALT [Catalytic activity/Vol] 34 U/L 13-56 [facility] CO2 [Moles/Vol] 28.0 mmol/L 21.0-32.0 [facility] Globulin (S) [Mass/Vol] 3.4 g/dL 2.2-4.2 [facility] Urea nitrogen/Creatinine [Mass ratio] 22.5 mg/mg 10-20 [facility] - Hematology and Cell countsOrdered By: Rylie Frausto on 01-22-2023 Erythrocyte distribution width (RBC) [Entitic vol] 41.6 fL 35.1-43.9 [facility] Erythrocyte distribution width (RBC) [Ratio] 12.6 % 11.6-14.6 [facility] Immature granulocytes/100 WBC (Bld) 1.000 % 0.0-0.9 [facility] Comment on above: IG% - Immature Granu locytes (promyelocytes, myelocytes and metamyelocytes) > 1% indicates that a LEFT SHIFT is Present. MCH (RBC) [Entitic mass] 30.2 pg 27.0-32.0 [facility] Nucleated RBC/100 WBC (Bld) [Ratio] 0 % 0-5 [facility] MCHC Auto (RBC) [Mass/Vol]Or dered By: Rylie Frausto on 01-22-2023 MCHC (RBC) [Mass/Vol] 33.1 g/dL 32-[address] [facility] No Panel InformationOrdered By: Rylie Frausto on 01-22-2023 Estimated GFR (MDRD) Amer 111 mL/min >60 [facility] Comment on above: GFR Calc Estimated GFR (MDRD) Non-Af Amer 91 mL/min >60 [facility] Comment on above: Non- GFR Calc Thyroid Stimulating Hormone (TSH) 1.04 uIU/mL 0.358-3.74 [facility] Platelets bldOrdered By: Uli Frausto on 01-22-2023 Platelets (Bld) [#/Vol] 252 10*3/uL 150-450 [facility] Serum or plasma albumin jessica urement (mass/volume)Ordered By: Rylie Frausto on 01-22-2023 Albumin [Mass/Vol] 4.3 g/dL 3.2-5.0 [facility] Serum or plasma albumin/glob ulin mass ratioOrdered By: Rylie Frausto on 01-22-2023 Albumin/Globulin [Mass ratio] 1.3 {ratio} 0.9-2.4 [facility] Serum or plasma calcium jessica urement (mass/volume)Ordered By: Rylie Frausto on 01-22-2023 Calcium [Mass/Vol] 9.4 mg/dL 8.5-10.1 [facility] Serum or plasma cholesterol in HDL measurement (mass/volume)Ordered By: Rylie Frausto on 01-22-2023 Cholesterol in HDL [Mass/Vol] 58 mg/dL >40 [facility] Comment on above: The drugs N-Acetylcy steine and Metamizole may falsely depress this assay. Reference Range HDL <40 mg/dL Low HDL Cholesterol HDL >or= 60 mg/dL High HDL Cholesterol Serum or plasma cholesterol in VLDL measurement (mass/volume)Ordered By: Rylie Frausto on 01-22-2023 Cholesterol in VLDL [Mass/Vol] 19 mg/dL 5-40 [facility] Serum or plasma creatinine m easurement (mass/volume)Ordered By: Rylie Frausto on 01-22-2023 Creatinine [Mass/Vol] 0.71 mg/dL 0.55-1.[address] [facility] Comment on above: The validity of the calculated GFR & GFRAA in patients over 70 years has not been determined. Clinical correlation is essential. Serum or plasma low density lipoprotein (LDL) cholesterol measurement (mass/volume)Ordered By: Rylie Frausto on 01-22-2023 Cholesterol in LDL [Mass/Vol] 104 mg/dL 0-130 [facility] Serum or plasma urea nitroge n measurement (mass/volume)Ordered By: Rylie Frausto on 01-22-2023 Urea nitrogen [Mass/Vol] 16 mg/dL 7-18 [facility] Thin prep Papanicolaou smear with manual screeningOrdered By: Rylie Frausto on 01-22-2023 Thin prep Papanicolaou smear with manual screening 22 U/L 15-37 [facility] Thin prep Papanicolaou smear with manual screening 6 5-15 [facility] Absolute lymphocyte counton 01-23-2022 Lymphocytes Auto (Unsp spec) [#/Vol] 1.91 10*3/uL 0.83-4.51 [facility] Work Phone: Basophil percentageon 2021 Basophils/100 WBC (Bld) 0.8 % 0-1 [facility] [facility] Work Phone: Bilirubin [Mass/Vol] 0.40 mg/dL 0.20-1.00 [facility] Work Phone: Comment on above: For patients on eltr ombopag therapy, use of Dimension [place] TBIL is not recommended. Chloride [Moles/Vol] 105 mmol/L 98-107 [facility] Work Phone: Cholesterol [Mass/Vol] 196 mg/dL <200 [facility] Work Phone: Comment on above: <200 mg/dL Desirable 200-240 mg/dL Borderline >240 mg/dL High Risk Eosinophils/100 WBC (Bld) 1.7 % 0-5 [facility] Work Phone: Glucose [Mass/Vol] 97 mg/dL 74-106 [facility] Work Phone: Neutrophils (Bld) [#/Vol] 2.9 10*3/uL 2.0-7.7 [facility] Work Phone: Neutrophils/100 WBC (Bld) 54.2 % 47-70 [facility] Work Phone: Potassium [Moles/Vol] 3.6 mmol/L 3.5-5.[address] [facility] Work Phone: Protein [Mass/Vol] 8.1 g/dL 6.4-8.2 [facility] Work Phone: Sodium [Moles/Vol] 139 mmol/L 136-145 [facility] Work Phone: Triglyceride [Mass/Vol] 194 mg/dL <199 [facility] Work Phone: Comment on above: The drugs N-Acetylcy steine and Metamizole may falsely depress this assay.Serum Triglycerides Reference Interval Normal <150 mg/dL Borderline high 150 - 199 mg/dL High 200 - 499 mg/dL Very High > or = 500 mg/dL WBC (Bld) [#/Vol] 5.3 10*3/uL 4.4-11.0 [facility] Work Phone: Blood erythrocytes count (nu mber/volume)on 01-23-2022 RBC (Bld) [#/Vol] 4.77 10*6/uL 4.2-5.4 [facility] Work Phone: Blood hemoglobin measurement (mass/volume)on 01-23-2022 Hemoglobin (Bld) [Mass/Vol] 14.4 g/dL 12.0-15.0 [facility] Work Phone: Blood lymphocytes/100 leukoc yteson 01-23-2022 Lymphocytes/100 WBC (Bld) 35.9 % 19-41 [facility] Work Phone: Blood monocytes/100 leukocyt eson 01-23-2022 Monocytes/100 WBC (Bld) 6.8 % 0-10 [facility] Work Phone: Blood platelet mean volumeon 01-23-2022 Platelet mean volume (Bld) [Entitic vol] 9.9 fL 6.2-12.0 [facility] Work Phone: Determination of erythrocyte mean corpuscular volume (MCV)on 01-23-2022 MCV (RBC) [Entitic vol] 89.9 fL 81-99 [facility] Work Phone: Hematocrit Auto (Bld) [Volum e fraction]on 01-23-2022 Hematocrit (Bld) [Volume fraction] 42.9 % 37-47 [facility] Work Phone: Laboratory - Chemistry and C hemistry - challengeon 01-23-2022 ALP [Catalytic activity/Vol] 95 U/L 45-117 [facility] Work Phone: ALT [Catalytic activity/Vol] 38 U/L 13-56 [facility] Work Phone: CO2 [Moles/Vol] 26.0 mmol/L 21.0-32.0 [facility] Work Phone: Globulin (S) [Mass/Vol] 3.7 g/dL 2.2-4.2 [facility] Work Phone: Urea nitrogen/Creatinine [Mass ratio] 20.5 mg/mg 10-20 [facility] Work Phone: Laboratory - Hematology and Cell countson 01-23-2022 Erythrocyte distribution width (RBC) [Entitic vol] 41.8 fL 35.1-43.9 [facility] Work Phone: Erythrocyte distribution width (RBC) [Ratio] 12.8 % 11.6-14.6 [facility] Work Phone: Immature granulocytes/100 WBC (Bld) 0.600 % 0.0-0.9 [facility] Work Phone: Comment on above: IG% - Immature Granu locytes (promyelocytes, myelocytes and metamyelocytes) > 1% indicates that a LEFT SHIFT is Present. MCH (RBC) [Entitic mass] 30.2 pg 27.0-32.0 [facility] Work Phone: Nucleated RBC/100 WBC (Bld) [Ratio] 0 % 0-5 [facility] Work Phone: MCHC Auto (RBC) [Mass/Vol]on 01-23-2022 MCHC (RBC) [Mass/Vol] 33.6 g/dL 32-[address] [facility] Work Phone: No Panel Informationon 01-23 Estimated GFR (MDRD) Amer 82 mL/min >60 [facility] Work Phone: Comment on above: GFR Calc Estimated GFR (MDRD) Non-Af Amer 68 mL/min >60 [facility] Work Phone: Comment on above: Non- GFR Calc Thyroid Stimulating Hormone (TSH) 2.00 uIU/mL 0.358-3.74 [facility] Work Phone: Platelets bldon 01-23-2022 Platelets (Bld) [#/Vol] 228 10*3/uL 150-450 [facility] Work Phone: Serum or plasma albumin jessica urement (mass/volume)on 01-23-2022 Albumin [Mass/Vol] 4.4 g/dL 3.2-5.0 [facility] Work Phone: Serum or plasma albumin/glob ulin mass ratioon 01-23-2022 Albumin/Globulin [Mass ratio] 1.2 {ratio} 0.9-2.4 [facility] Work Phone: Serum or plasma calcium jessica urement (mass/volume)on 01-23-2022 Calcium [Mass/Vol] 9.3 mg/dL 8.5-10.1 [facility] Work Phone: Serum or plasma cholesterol in HDL measurement (mass/volume)on 01-23-2022 Cholesterol in HDL [Mass/Vol] 57 mg/dL >40 [facility] Work Phone: Comment on above: The drugs N-Acetylcy steine and Metamizole may falsely depress this assay. Reference Range HDL <40 mg/dL Low HDL Cholesterol HDL >or= 60 mg/dL High HDL Cholesterol Serum or plasma cholesterol in VLDL measurement (mass/volume)on 01-23-2022 Cholesterol in VLDL [Mass/Vol] 39 mg/dL 5-40 [facility] Work Phone: Serum or plasma creatinine m easurement (mass/volume)on 01-23-2022 Creatinine [Mass/Vol] 0.93 mg/dL 0.55-1.[address] [facility] Work Phone: Comment on above: The validity of the calculated GFR & GFRAA in patients over 70 years has not been determined. Clinical correlation is essential. Serum or plasma low density lipoprotein (LDL) cholesterol measurement (mass/volume)on 01-23-2022 Cholesterol in LDL [Mass/Vol] 100 mg/dL 0-130 [facility] Work Phone: Serum or plasma urea nitroge n measurement (mass/volume)on 01-23-2022 Urea nitrogen [Mass/Vol] 19 mg/dL 7-18 [facility] Work Phone: Thin prep Papanicolaou smear with manual screeningon 01-23-2022 Thin prep Papanicolaou smear with manual screening 23 U/L 15-37 [facility] Work Phone: Thin prep Papanicolaou smear with manual screening 8 5-15 [facility] Work Phone: Vital Signs Date Time Vital Sign Value Performing Clinician Faci lity 01-22-2023 17:05-0400 Body height 154.94 cm [facility] 01-22-2023 17:05-0400 Body mass index (BMI) [Ratio] 25.1 kg/m2 [facility] 01-22-2023 17:05-0400 Body temperature 97.9 [degF] [facility] 01-22-2023 17:05-0400 Body weight 60.32 kg [facility] 01-22-2023 17:05-0400 Diastolic blood pressure 60 mm[Hg] [facility] 01-22-2023 17:05-0400 Heart rate 92 /min [facility] 01-22-2023 17:05-0400 Respiratory rate 18 /min [facility] 01-22-2023 17:05-0400 SaO2% (BldA) [Mass fraction] 97 % [facility] 01-22-2023 17:05-0400 Systolic blood pressure 115 mm[Hg] [facility] 01-23-2022 16:38-0400 Body height 154.94 cm [facility] Work Phone: 01-23-2022 16:38-0400 Body mass index (BMI) [Ratio] 25.1 kg/m2 [facility] Work Phone: 01-23-2022 16:38-0400 Body temperature 97.5 [degF] [facility] Work Phone: 01-23-2022 16:38-0400 Body weight 60.32 kg [facility] Work Phone: 01-23-2022 16:38-0400 Diastolic blood pressure 78 mm[Hg] [facility] Work Phone: 01-23-2022 16:38-0400 Heart rate 75 /min [facility] Work Phone: 01-23-2022 16:38-0400 Respiratory rate 18 /min [facility] Work Phone: 01-23-2022 16:38-0400 SaO2% (BldA) [Mass fraction] 96 % [facility] Work Phone: 01-23-2022 16:38-0400 Systolic blood pressure 150 mm[Hg] [facility] Work Phone: Encounters Encounter Date Encounter Type Care Provider Facility Start: 01-28-2024 End: 01-28-2024 ambulatory Rylie Frausto Facility:[facility] Start: 01-22-2023 End: 01-22-2023 ambulatory [facility] Work Phone: Start: 01-22-2023 End: 01-22-2023 Patient encounter procedure [facility], Specimen Start: 09-11-2022 End: 09-11-2022 ambulatory [facility] Work Phone: Start: 09-11-2022 End: 09-11-2022 Discharged Recurring [facility] Start: 01-23-2022 End: 01-23-2022 Patient encounter procedure [facility], Specimen Procedures Date Procedure Procedure Detail Performing Clinician Total abdominal hysterectomy TOTAL ABDOMI NAL HYSTERECTOMY Plan of Treatment Date Care Activity Detail Author MG Breast - left Screening [facility] Work Phone: Payers Date Payer Category Payer Self-pay [id number] 2024 Unknown [id number] Unknown [id number] Social History Date Type Detail Facility Start: 07-05-2020 Tobacco smoking stat us [facility] Unknown if ever smoked [facility] Start: 1970 Sex Assigned At Female [facility] Evaluation note Note Date & Type Note Facility Evaluation note Diagnosis Onset Date Breast cancer screening by mammogram acute Hypothyroidism acute Hypertension [facility] Work Phone: Evaluation note Note Date & Type Note Facility Evaluation note No assessment information availa ble [facility] Work Phone: Evaluation note Note Date & Type Note Facility Evaluation note Diagnosis Onset Date Hypothyroidism acute Osteoarthritis of multiple joints acute Hypertension [facility] Work Phone: Chief Complaint and Reason for Visit Chief Complaint medication refills & labs Reason for Visit Breast cancer screen ing by mammogram Hypothyroidism Hypertension Chief Complaint UNITLATERAL OSTEOART HRITIS RIGHT HAND / PT HAS RX Chief Complaint medication refills & Labs Reason for Visit Hypothyroidism Osteoarthritis of multiple joints Hypertension Family History No Family History Records Found Relationship Condition Age at Onset Recorded Date/T bandar Not Specified History of migraine Unknown Malignant neoplasm of pancreas Unknown Diverticulitis Unknown Multiple sclerosis Unknown Malignant neoplasm Unknown mother Hypertension Unknown High blood cholesterol Unknown Summary Purpose Advance Directives No Advanced Directives Records Found Additional Source Comments Goals (unrecognized section and content) Goals may be documented in a n alternate sectionGoals may be documented in an alternate sectionGoals may be documented in an alternate section Care Teams (unrecognized sec tion and content) Team Status: Active Member Role Status Dates Dr. Judson Quiñonez MD Family Provider Active Rylie Frausto NP, GI ASST-C Primary Care Provider Active Team Status: Inactive Member Role Status Dates Dr. Juan Myrick MD Attending Provider, Referring Provider Active Rylie Frausto NP, GI ASST-C Primary Care Provider Active Team Status: Inactive Member Role Status Dates Rylie Frausto NP, NP-C Primary Care Pr kim, Attending Provider, Referring Provider Active Team Status: Inactive Member Role Status Dates Rylie Frausto NP, LAURIE-C Primary Care Provider, Attend ing Provider Active INFORMATION SOURCE (unrecogn ized section and content) DATE CREATED AUTHOR 02/03/2024 [facility] FOR RECORDS PERTAINING TO PATIENTS WHO ARE OR HAVE BEEN ENROLLED IN A CHEMICAL DEPENDENCY/SUBSTANCEABUSE PROGRAM, SOME INFORMATION MAY BE OMITTED. This clinical summary was aggregated from multiple sources. Caution should be exercised in using it in the provision of clinical care. This summary normalizes information from multiple sources, and as a consequence, information in this document may materially change the coding, format and clinical context of patient data. In addition, data may be omitted in some cases. CLINICAL DECISIONS SHOULD BE BASED ON THE PRIMARY CLINICAL RECORDS. [email or web address]. provides no warranty or guarantee of the accuracy or completeness of information in this document.
[2025-01-27 22:56] LABS: ALB/GLOB Ratio 1.7 RATIO (0.9-2.4); AST(SGOT) 24 U/L (<=31); Alanine Aminotransfer ALT/SGPT 28 U/L (<=34); Albumin, Serum 4.5 g/dL (3.5-5.0); Alkaline Phosphatase 83 U/L (35-104); Anion Gap 14 (5-15); BUN 15 mg/dL (4-19); Calcium,Total 9.4 mg/dL (7.6-11.0); Chloride 102 mmol/L (98-108); Cholesterol 175 mg/dL (<=200); Creatinine, Serum 0.74 mg/dL (0.70-1.20); EST Glomerular Filtration Rate 95 (>60); Globulin 2.7 g/dL (2.2-4.2); Glucose 88 mg/dL (70-99); High Density Lipoprotein 57 mg/dL; Low Density Lipoprotein Calc. 75 mg/dL; Protein, Total 7.2 g/dL (5.9-8.4); Sodium Level 138 mmol/L (133-145); Total Bilirubin 0.62 mg/dL (0.00-1.30); Triglycerides 214 mg/dL; Very Low Density Lipoprotein 43 mg/dL (5-40); cholesterol:hdl ratio screen 3.05
== END | disposition home or self-care (01) ==
PROVIDERS: PCP Nurse Practitioner; Referring Provider Nurse Practitioner; Visit Provider Nurse Practitioner
DX: M15.9 Polyosteoarthritis, unspecified (principal); E03.9 Hypothyroidism, unspecified; I10 Essential (primary) hypertension; M72.0 Palmar fascial fibromatosis [Dupuytren]
CPT/HCPCS: 80053; 80061; 84443; 85025

== ENCOUNTER 2025-03-30 07:55 | Day surgery (SDC) | payer BC, SELFPAY ==
[2025-03-30] VITALS (9 sets, daily range): BP systolic 96–177; BP diastolic 62–95; PULSE 60–75; RESP 14–16; TEMP 36.3–36.6; O2SAT 97–100; BMI 23.7
--- NOTE | 2025-03-30 08:06 | PCM.HP.STD ---
[facility] - General General Date of Service: 03/30/25 Chief Complaint: Screening colonoscopy HPI Narrative DORA BROWNING, is a 54 F who presents today for screening colonoscopy. She has past medical history of hypothyroidism, hypertension and osteoarthritis. She takes atorvastatin calcium and levothyroxine along with losartan and meloxicam on a daily basis. She has never had a colonoscopy in the past. [facility] Medical History Wears partial dentures Thyroid disease Arthritis Migraine headache Restless legs History of GI bleed History of ulceration History of IBS Non-smoker Reactive arthropathy of wrist Seasonal allergies Hypertension Murmur IUD ASSURES (COILS) HAS HAD MANY INFECTIONS Fibroids Hx of migraines Hypothyroidism Home Medications ?Medication ?Instructions ?Recorded ?Last Taken ?Type atorvastatin 40 mg tablet 40 mg PO DAILY #90 tabs 01/27/25 Unknown Rx losartan 50 mg tablet 50 mg PO DAILY #90 tabs 01/27/25 Unknown Rx meloxicam 15 mg tablet 15 mg PO QDAY #90 tabs 01/27/25 03/28/25 Rx tramadol 50 mg tablet 50 mg PO BID PRN pain (scale score 01/27/25 03/28/25 Rx 7-10) #60 tabs levothyroxine 50 mcg tablet 50 mcg PO DAILY #90 tabs 01/29/25 Unknown Rx Allergy/AdvReac Type Severity Reaction Status Date / Time metoclopramide (From Reglan) Allergy Severe SEIZURE Verified 03/30/25 08:20 amoxicillin (From Augmentin) AdvReac Severe diarrhea Verified 03/30/25 08:20 and cramping clavulanic acid (From AdvReac Severe diarrhea Verified 03/30/25 08:20 Augmentin) and cramping Family History Mother Hypertension High cholesterol Other Cancer Diverticulitis Hx of migraines Multiple sclerosis Pancreatic cancer Surgical History History of hand surgery History of bilateral cataract extraction TOTAL ABDOMINAL HYSTERECTOMY C SECT X2 H/O prior ablation treatment FIBROID REMOVED OCTOBER 2012 Social History Smoking Status: Never smoker alcohol intake: current substance use type: does not use ROS Constitutional Constitutional: Denies fatigue, fever(s), poor appetite, weight gain or weight loss Gastrointestinal Gastrointestinal: Denies belching, bloating, change in bowel habits, change in stool character, chewing difficulty, coffee ground emesis, constipation, cramping, diarrhea, dyspepsia, dysphagia, early satiety, excessive flatus, fecal incontinence, heartburn, hematemesis, hematochezia, hemorrhoids, loose stools, melena, nausea, odynophagia, rectal bleeding, tenesmus, vomiting or weight changes Physical Exam Const alert, oriented x3, no apparent distress and healthy appearing General Appearance: cooperative GI normal to inspection, nondistended, normoactive bowel sounds, soft to palpation, non-tender and non-distended Percussion: normal to percussion Rectal Exam: deferred Assessment & Plan Assessment/Plan (1) Encounter for screening colonoscopy: PLAN: She will undergo screening colonoscopy. She was explained alternatives, risk and benefits include not withstanding bleeding, infection, sepsis, perforation, need for surgery . She will have an ASA of 3.
--- OUTSIDE RECORDS SUMMARY | 2025-03-30 08:27 | XMS RPT_ITS | CCD ---
Author Organization [facility] Care Team Providers Care Testing Shaking Shipping Name Role Phone Jett SERVER MANAGER-C, Rylie Primary Care Provider [phone] Jett SERVER MANAGER-C, Rylie Attending Provider Jett SERVER MANAGER-C, Rylie Referring Provider Friend, Shane Attending Unavailable Jett SERVER MANAGER, Rylie Referring Unavailable Jett SERVER MANAGER, Rylie Primary Care Unavailable Jett SERVER MANAGER, Rylie Referring Unavailable Jett SERVER MANAGER, Rylie Attending Unavailable Jett SERVER MANAGER, Rylie Primary Care Unavailable Allergies Allergy Classification Reported Allergen(s) Allergy Type Date of Onset Reaction(s) Facility (4 sources) Amoxicillin Drug Allergy 9 diarrhea and cramping [facility] (4 sources) Clavulanate Drug Allergy 9 diarrhea and cramping [facility] (1 source) Amoxicillin Drug Allergy 5 [facility] Rep[facility] (1 source) Clavulanate Drug Allergy 5 [facility] (1 source) Metoclopramide Drug Allergy 5 [facility] Rep[facility] Medications Current Medications Medication Drug Class(es) Dates Sig (Normalized) Sig (Original) atorvastatin 40 mg oral tablet (16 sources) HMG-CoA Reductase Inhibitor Start: 01-25-2021 End: 01-27-2025 take 1 tablet by mouth once daily Atorvastatin 40 mg tablet Active 40 mg PO DAILY 90 3 January 27, 2025 4:06pm Start: 07-27-2020 End: 01-25-2021 take 1 tablet by mouth once daily Atorvastatin 20 mg tablet Discontinued 20 mg PO DAILY 90 July 27, 2020 1:00am January 25, 2021 12:46pm losartan potassium 50 mg oral tablet (16 sources) Angiotensin 2 Receptor Masoud Start: 01-24-2021 End: 01-27-2025 take 1 tablet by mouth once daily Losartan 50 mg tablet Active 50 mg PO DAILY 90 January 27, 2025 4:06pm meloxicam 15 mg oral tablet (4 sources) Nonsteroidal Anti-inflammatory Drug Start: 01-22-2023 End: 01-27-2025 take 1 tablet by mouth once daily Meloxicam 15 mg tablet Active 15 mg PO daily 90 January 27, 2025 4:06pm Completed/Discontinued Medications Medication Drug Class(es) Dates Sig (Normalized) Sig (Original) cefuroxime 250 mg oral tablet (4 sources) Cephalosporin Antibacterial Start: 12-16-2018 End: 06-02-2020 take 1 tablet by mouth twice daily Cefuroxime Axetil 250 mg tablet Discontinued 250 mg PO TWICE A DAY December 16, 2018 12:00am June 02, 2020 4:22pm hydroCHLOROthiazide 12.5 mg / lisinopril 10 mg oral tablet (8 sources) Thiazide Diuretic, Angiotensin Converting Enzyme Inhibitor Start: 07-05-2020 End: 01-24-2021 Lisinopril-Detroit chlorothiazide 10-12.5 mg tablet Discontinued 1 {tbl} PO DAILY July 27, 2020 3:42pm January 24, 2021 4:18pm Start: 07-05-2020 End: 01-24-2021 take 1 tablet by mouth once daily Lisinopril-Hydrochlorothiazide Discontin ued 1 TABLET PO DAILY July 27, 2020 3:42pm January 24, 2021 4:18pm levothyroxine sodium 0.05 mg oral tablet (20 sources) l-Thyroxine Start: 12-16-2018 End: 01-29-2025 take 1 tablet by mouth once daily Levothyroxine 50 mcg tablet Discontinued 50 ug PO DAILY January 25, 2022 10:48am January 23, 2023 12:49pm mupirocin 0.02 mg/mg topical ointment (4 sources) RNA Synthetase Inhibitor Antibacterial Start: 06-02-2020 End: 01-23-2022 Mupirocin 2 % ointment Discontinued 1 NMA TOPICAL THREE TIMES A DAY as needed for PERIORAL DERMATITIS 25 10June 02, 2020 12:00am January 23, 2022 4:39pm predniSONE 20 mg oral tablet (4 sources) Start: 06-13-2020 End: 06-18-2020 take 2 tablets by mouth once daily Prednisone 20 mg tablet Discontinued 40 mg PO DAILY June 13, 2020 1:00am June 17, 2020 1:00am June 18, 2020 1:03am Start: 06-13-2020 End: 06-18-2020 take 40 mg by mouth once daily Prednisone Discontinued 40 MG PO DAILY 05 10June 13, 2020 1:00am June 18, 2020 1:03am sulfamethoxazole 800 mg / trimethoprim 160 mg oral tablet (4 sources) Dihydrofolate Reductase Inhibitor Antibacterial, Sulfonamide Antimicrobial Start: 06-02-2020 End: 06-12-2020 Sulfamethoxazole-Trimethopri m 800-160 mg tablet Discontinued 1 {tbl} PO TWICE A DAY June 02, 2020 12:00am June 11, 2020 1:00am June 12, 2020 1:03am hematuria Start: 06-02-2020 End: 06-12-2020 take 1 tablet by mouth twice daily Sulfamethoxazole-Trimethoprim Discontinu ed 1 TABLET PO TWICE A DAY 25 05June 02, 2020 12:00am June 12, 2020 1:03am traMADol hydrochloride 50 mg oral tablet (3 sources) Opioid Agonist Start: 01-28-2024 End: 01-27-2025 take 1 tablet by mouth twice daily as needed for pain Tramadol 50 mg tablet Discontinued 50 mg PO TWICE A DAY as needed for pain (scale score 7-10) 60 5 January 27, 2025 4:06pm January 27, 2025 4:25pm 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, lumbar region Problems Active Problems Problem Classification Problem Date Documented Date Episodic/Chronic Diseases of mouth; excluding dental (4 sources) Painful mouth; Translations: [Other lesions of oral mucosa] 06-02-2020 Episodic Essential hypertension (4 sources) Hypertensive disorder; Translations: [Essential (primary) hypertension] 07-05-2020 Chronic Infective arthritis and osteomyelitis (except that caused by tuberculosis or sexually transmitted disease) (2 sources) Reactive arthropathy of wrist; Translations: [Reactive arthropathy, unspecified] 01-22-2023 Chronic Osteoarthritis (3 sources) Osteoarthritis of multiple joints ; Translations: [Polyosteoarthritis, unspecified] Onset: 02-02-2025 01-22-2023 Chronic Other connective tissue disease (1 source) Dupuytren's disease; 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]] Episodic Other connective tissue disease (3 sources) Musculoskeletal fibromatosis; 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]] 01-24-2021 Episodic Other inflammatory condition of skin (4 sources) Perioral dermatitis; Translations: [Perioral dermatitis] 06-02-2020 Chronic Other lower respiratory disease (4 sources) Cough; Translations: [Cough] 12-16-2018 Episodic Other screening for suspected conditions (not mental disorders or infectious disease) (4 sources) Patient encounter status; Translations: [Encounter for screening mammogram for malignant neoplasm of breast] 01-23-2022 Episodic Other upper respiratory infections (4 sources) Acute maxillary sinusitis; Translations: [Acute maxillary sinusitis, unspecified] 12-16-2018 Episodic Spondylosis; intervertebral disc disorders; other back problems (1 source) Disorder of lumbar spine; Translations: [Spondylosis without myelopathy or radiculopathy, lumbar region] 01-27-2025 Chronic Thyroid disorders (4 sources) Hypothyroidism; Translations: [Hypothyroidism, unspecified] 01-20-2020 Chronic Past or Other Problems Problem Classification Problem Date Documented Da te Episodic/Chronic Unclassified (3 sources) C SECT X2 02-23-2022 Unclassified (3 sources) FIBROID REMOVED OCTOBER 2012 02-23-2022 Unclassified (3 sources) IUD ASSURES (COILS) HAS HAD MANY INFECTIONS 02-23-2022 Results Test Name Value Interpretation Reference Range Facility Absolute lymphocyte countOrd ered By: Rylie Frausto on 01-27-2025 Lymphocytes Auto (Unsp spec) [#/Vol] 2.18 10*3/uL 0.83-4.51 [facility] Absolute neutrophil countOrd ered By: Rylie Frausto on 01-27-2025 Neutrophils (Bld) [#/Vol] 4.1 10*3/uL 2.0-7.7 [facility] Anion gap in Serum or Plasma Ordered By: Rylie Frausto on 01-27-2025 Anion gap [Moles/Vol] 14 mmol/L 5-15 [facility] Automated lymphocyte count a s percentage of total leukocytesOrdered By: Rylie Frausto on 01-27-2025 Lymphocytes/100 WBC Auto (Unsp spec) 30.9 % - [facility] BUN/creatinine ratioOrdered By: Rylie Frausto on 01-27-2025 Urea nitrogen/Creatinine [Mass ratio] 20.0 mg/mg 10- [facility] Basophil percentageOrdered B y: Rylie Frausto on 01-27-2025 Basophils/100 WBC (Bld) 0.6 % 0-1 [facility] Bilirubin, totalOrdered By: Rylie Frausto on 01-27-2025 Bilirubin [Mass/Vol] 0.62 mg/dL 0.00-1.30 [facility] CBC W/Diff, Automatedon 01-05 Absolute Lymph 2.18 X10 3/uL Normal 0.83-4.51 [facility] Comment on above: Performed By: #### L 100.0100, L500.4050, L500.4100, [id number] #### [facility] [address] [place], [address] Absolute Neut 4.1 X10 3/uL Normal 2.0-7.7 [facility] Comment on above: Performed By: #### L 100.0100, L500.4050, L500.4100, [id number] #### [facility] [address] [place], [address] Basophils/100 WBC (Bld) 0.6 % Normal 0-1 [facility] Comment on above: Performed By: #### L 100.0100, L500.4050, L500.4100, [id number] #### [facility] [address] [place], [address] Eosinophils/100 WBC (Bld) 2.6 % Normal 0-5 [facility] Comment on above: Performed By: #### L 100.0100, L500.4050, L500.4100, [id number] #### [facility] [address] [place], [address] Erythrocyte distribution width (RBC) [Ratio] 13.1 % Normal 11.6-14.6 [facility] Comment on above: Performed By: #### L 100.0100, L500.4050, L500.4100, [id number] #### [facility] [address] [place], [address] Hematocrit (Bld) [Volume fraction] 39.0 % Normal 37-47 [facility] Comment on above: Performed By: #### L 100.0100, L500.4050, L500.4100, [id number] #### [facility] [address] [place], [address] Hemoglobin (Bld) [Mass/Vol] 13.3 g/dL Normal 12.0-15.0 [facility] Comment on above: Performed By: #### L 100.0100, L500.4050, L500.4100, [id number] #### [facility] [address] [place], [address] IG% 0.400 Normal 0.0-0.9 [facility] Comment on above: Result Comment: IG% - Immature Granulocytes (promyelocytes, myelocytes and metamyelocytes) > 1% indicates that a LEFT SHIFT is Present. Performed By: #### L 100.0100, L500.4050, L500.4100, [id number] #### [facility] [address] [place], [address] Lymphocytes/100 WBC (Bld) 30.9 % Normal 19-41 [facility] Comment on above: Performed By: #### L 100.0100, L500.4050, L500.4100, [id number] #### [facility] [address] [place], [address] MCH (RBC) [Entitic mass] 31.0 pg Normal 27.0-32.0 [facility] Comment on above: Performed By: #### L 100.0100, L500.4050, L500.4100, [id number] #### [facility] [address] [place], [address] MCHC (RBC) [Mass/Vol] 34.1 g/dL Normal 32-36 [facility] Comment on above: Performed By: #### L 100.0100, L500.4050, L500.4100, [id number] #### [facility] [address] [place], [address] MCV (RBC) [Entitic vol] 90.9 fL Normal 81-99 [facility] Comment on above: Performed By: #### L 100.0100, L500.4050, L500.4100, [id number] #### [facility] [address] [place], [address] Monocytes/100 WBC (Bld) 6.8 % Normal 0-10 [facility] Comment on above: Performed By: #### L 100.0100, L500.4050, L500.4100, [id number] #### [facility] [address] [place], [address] Neutrophils/100 WBC (Bld) 58.7 % Normal 47-70 [facility] Comment on above: Performed By: #### L 100.0100, L500.4050, L500.4100, [id number] #### [facility] [address] [place], [address] Nucleated RBC (Bld) [#/Vol] 0 10*3/uL Normal 0-5 [facility] Comment on above: Performed By: #### L 100.0100, L500.4050, L500.4100, [id number] #### [facility] [address] [place], [address] Platelet mean volume (Bld) [Entitic vol] 10.2 fL Normal 6.2-12.0 [facility] Comment on above: Performed By: #### L 100.0100, L500.4050, L500.4100, [id number] #### [facility] [address] [place], [address] Platelets (Bld) [#/Vol] 235 10*3/uL Normal 150-450 [facility] Comment on above: Performed By: #### L 100.0100, L500.4050, L500.4100, [id number] #### [facility] [address] [place], [address] RBC (Bld) [#/Vol] 4.29 10*6/uL Normal 4.2-5.4 [facility] Comment on above: Performed By: #### L 100.0100, L500.4050, L500.4100, [id number] #### [facility] [address] [place], [address] RDW SD 42.9 fl Normal 35.1-43.9 [facility] Comment on above: Performed By: #### L 100.0100, L500.4050, L500.4100, [id number] #### [facility] [address] [place], [address] WBC (Bld) [#/Vol] 7.1 10*3/uL Normal 4.4-11.0 [facility] Comment on above: Performed By: #### L 100.0100, L500.4050, L500.4100, [id number] #### [facility] [address] [place], [address] Calculated very low density lipoprotein (VLDL) cholesterol measurementOrdered By: Rylie Frausto on 01-27-2025 Calculated very low density lipoprotein (VLDL) cholesterol measurement 43 mg/dL High 5-40 [facility] Carbon dioxide, total [Moles /volume] in Central venous bloodOrdered By: Rylie Frautso on 01-27-2025 CO2 [Moles/Vol] 22.0 mmol/L 21.0-32.0 [facility] Chloride assayOrdered By: Do ra Frausto on 01-27-2025 Chloride [Moles/Vol] 102 mmol/L 98-108 [facility] Comprehensive Metabolic Prof ilon 01-27-2025 Albumin [Mass/Vol] 4.5 g/dL Normal 3.5-5.0 [facility] Comment on above: Performed By: #### L 100.0100, L500.4050, L500.4100, [id number] #### [facility] [address] [place], [address] Albumin/Globulin [Mass ratio] 1.7 {ratio} Normal 0.9-2.4 [facility] Comment on above: Performed By: #### L 100.0100, L500.4050, L500.4100, [id number] #### [facility] [address] [place], [address] ALK PHOS 83 U/L Normal 35-104 [facility] Comment on above: Performed By: #### L 100.0100, L500.4050, L500.4100, [id number] #### [facility] [address] [place], [address] ALT [Catalytic activity/Vol] 28 U/L Normal <=34 [facility] Comment on above: Performed By: #### L 100.0100, L500.4050, L500.4100, [id number] #### [facility] [address] [place], [address] AST [Catalytic activity/Vol] 24 U/L Normal <=31 [facility] Comment on above: Performed By: #### L 100.0100, L500.4050, L500.4100, [id number] #### [facility] [address] [place], [address] Bilirubin [Mass/Vol] 0.62 mg/dL Normal 0.00-1.30 [facility] Comment on above: Performed By: #### L 100.0100, L500.4050, L500.4100, [id number] #### [facility] [address] [place], [address] BUN/CRE 20.0 RATIO Normal 10-20 [facility] Comment on above: Performed By: #### L 100.0100, L500.4050, L500.4100, [id number] #### [facility] [address] [place], [address] Calcium [Mass/Vol] 9.4 mg/dL Normal 7.6-11.0 [facility] Comment on above: Performed By: #### L 100.0100, L500.4050, L500.4100, [id number] #### [facility] [address] [place], [address] Chloride [Moles/Vol] 102 mmol/L Normal 98-108 [facility] Comment on above: Performed By: #### L 100.0100, L500.4050, L500.4100, [id number] #### [facility] [address] [place], [address] CO2 [Moles/Vol] 22.0 mmol/L Normal 21.0-32.0 [facility] Comment on above: Performed By: #### L 100.0100, L500.4050, L500.4100, [id number] #### [facility] [address] [place], [address] Creatinine [Mass/Vol] 0.74 mg/dL Normal 0.70-1.20 [facility] Comment on above: Performed By: #### L 100.0100, L500.4050, L500.4100, [id number] #### [facility] [address] [place], [address] GAP 14 Normal 5-15 [facility] Comment on above: Performed By: #### L 100.0100, L500.4050, L500.4100, [id number] #### [facility] [address] [place], [address] GFR/1.73 sq M.predicted among non-blacks MDRD (S/P/Bld) [Vol rate/Area] 95 mL/min/{1.73_m2} Normal >60 [facility] Comment on above: Result Comment: mL/m in/1.73m2 CKD-EPI Creatinine Equation (2020) Performed By: #### L 100.0100, L500.4050, L500.4100, [id number] #### [facility] [address] [place], [address] Globulin (S) [Mass/Vol] 2.7 g/dL Normal 2.2-4.2 [facility] Comment on above: Performed By: #### L 100.0100, L500.4050, L500.4100, [id number] #### [facility] [address] [place], [address] Glucose [Mass/Vol] 88 mg/dL Normal 70-99 [facility] Comment on above: Performed By: #### L 100.0100, L500.4050, L500.4100, [id number] #### [facility] [address] [place], [address] Potassium [Moles/Vol] 4.0 mmol/L Normal 3.3-5.1 [facility] Comment on above: Performed By: #### L 100.0100, L500.4050, L500.4100, [id number] #### [facility] [address] [place], [address] Sodium [Moles/Vol] 138 mmol/L Normal 133-145 [facility] Comment on above: Performed By: #### L 100.0100, L500.4050, L500.4100, [id number] #### [facility] [address] [place], [address] T PROT 7.2 g/dL Normal 5.9-8.4 [facility] Comment on above: Performed By: #### L 100.0100, L500.4050, L500.4100, [id number] #### [facility] [address] [place], [address] Urea nitrogen [Mass/Vol] 15 mg/dL Normal 4-19 [facility] Comment on above: Performed By: #### L 100.0100, L500.4050, L500.4100, [id number] #### [facility] [address] [place], [address] Eosinophil percentageOrdered By: Rylie Frausot on 01-27-2025 Eosinophils/100 WBC (Bld) 2.6 % 0-5 [facility] Erythrocyte distribution wid th ratioOrdered By: Rylie Frausto on 01-27-2025 Erythrocyte distribution width (RBC) [Ratio] 13.1 % 11.6-14.6 [facility] Erythrocyte distribution wid th standard deviationOrdered By: Rylie Frausto on 01-27-2025 Erythrocyte distribution width (RBC) [Ratio] 42.9 fl 35.1-43.9 [facility] Glomerular filtration rate ( GFR) estimation/1.73 sq m using serum, plasma, or whole bOrdered By: Rylie Frausto on 01-27-2025 GFR/1.73 sq M.predicted among non-blacks MDRD (S/P/Bld) [Vol rate/Area] 95 mL/min/{1.73_m2} >60 [facility] Comment on above: mL/min/1.73m2 CKD-EP I Creatinine Equation (2020) Hematocrit Auto (Bld) [Volum e fraction]Ordered By: Rylie Frausto on 01-27-2025 Hematocrit (Bld) [Volume fraction] 39.0 % 37-47 [facility] Hemoglobin measurementOrdere d By: Rylie Frausto on 01-27-2025 Hemoglobin (Bld) [Mass/Vol] 13.3 g/dL 12.0-15.0 [facility] Immature granulocytes/100 WB C Auto (Bld)Ordered By: Rylie Frausto on 01-27-2025 Immature granulocytes/100 WBC (Bld) 0.400 % 0.0-0.9 [facility] Comment on above: IG% - Immature Granu locytes (promyelocytes, myelocytes and metamyelocytes) > 1% indicates that a LEFT SHIFT is Present. LDL calc ser/plasOrdered By: Rylie Frausto on 01-27-2025 Cholesterol in LDL [Mass/Vol] 75 mg/dL [facility] Comment on above: Ksllizxcxg=732-314 m g/dL & Higher Ntit=688 mg/dL or greater Laboratory - Chemistry and C hemistry - challengeOrdered By: Rylie Frausto on 01-27-2025 AST [Catalytic activity/Vol] 24 U/L <32 [facility] Lipid Profileon 01-27-2025 CHOL:HDL 3.05 Normal [facility] Comment on above: Performed By: #### L 100.0100, L500.4050, L500.4100, L501.9520 #### [facility] [address] [place], [place], [address] Cholesterol [Mass/Vol] 175 mg/dL Normal <=200 [facility] Comment on above: Result Comment: Chol esterol level, Desirable <200 mg/dL Borderline high cholesterol 200-239 mg/dL High cholesterol >=240 mg/dL Recommendations of the NCEP Adult Treatment Panel for the following risk-cutoff thresholds for the [place] population. Performed By: #### L 100.0100, L500.4050, L500.4100, L501.9520 #### [facility] [address] [place], [address] Cholesterol in HDL [Mass/Vol] 57 mg/dL Normal [facility] Comment on above: Result Comment: Lo onal Cholesterol Education Program (NCEP) guidelines: <40 mg/dL: Low HDL-cholesterol (major risk factor for CHD) >= 60 mg/dL: High HDL-cholesterol (negative risk factor for CHD) HDL-cholesterol is affected by a number of factors, e.g. smoking, exercise, hormones, sex and age. Performed By: #### L 100.0100, L500.4050, L500.4100, L501.9520 #### [facility] [address] [place], [address] Cholesterol in LDL [Mass/Vol] 75 mg/dL Normal [facility] Comment on above: Result Comment: Bord mpevkf=396-148 mg/dL Higher Mjvs=080 mg/dL or greater Performed By: #### L 100.0100, L500.4050, L500.4100, [id number] #### [facility] [address] [place], [address] Cholesterol in VLDL [Mass/Vol] 43 mg/dL High 5-40 [facility] Comment on above: Performed By: #### L 100.0100, L500.4050, L500.4100, [id number] #### [facility] [address] [place], [address] Triglyceride [Mass/Vol] 214 mg/dL High [facility] Comment on above: Result Comment: The drugs N-Acetylcysteine and Metamizole may falsely depress this assay. Normal range: <150 mg/dL Borderline High: 150-199 mg/dL High: 200-499 mg/dL Very High: >500 mg/dL Performed By: #### L 100.0100, L500.4050, L500.4100, L501.9520 #### [facility] [address] [place], [address] MCV (mean corpuscular volume ) determinationOrdered By: Rylie Frausto on 01-27-2025 MCV (RBC) [Entitic vol] 90.9 fL 81-99 [facility] Mean corpuscular hemoglobin (MCH) determinationOrdered By: Rylie Frausto on 01-27-2025 MCH (RBC) [Entitic mass] 31.0 pg 27.0-32.0 [facility] Mean corpuscular hemoglobin concentration (MCHC) determinationOrdered By: Rylie Frausto on 01-27-2025 MCHC (RBC) [Mass/Vol] 34.1 g/dL 32-36 [facility] Mean platelet volume determi nationOrdered By: Rylie Frausto on 01-27-2025 Platelet mean volume (Bld) [Entitic vol] 10.2 fL 6.2-12.0 [facility] Monocyte percentageOrdered B y: Rylie Frausto on 01-27-2025 Monocytes/100 WBC (Bld) 6.8 % 0-10 [facility] Neutrophil percentageOrdered By: Rylie Frausto on 01-27-2025 Neutrophils/100 WBC (Bld) 58.7 % 47-70 [facility] Nucleated red blood cell per centageOrdered By: Rylie Frausto on 01-27-2025 Nucleated RBC/100 WBC (Bld) [Ratio] 0 % 0-5 [facility] Platelet countOrdered By: Do ra Frausto on 01-27-2025 Platelets (Bld) [#/Vol] 235 10*3/uL 150-450 [facility] Potassium measurement (mass/ volume)Ordered By: Rylie Frausto on 01-27-2025 Potassium (Unsp spec) [Mass/Vol] 4.0 mmol/L 3.3-5.1 [facility] RBC Auto (Bld) [#/Vol]Ordere d By: Rylie Frausto on 01-27-2025 RBC (Bld) [#/Vol] 4.29 10*6/uL 4.2-5.4 [facility] Screening total cholesterol/ high density lipoprotein (HDL) cholesterol ratioOrdered By: Rylie Frausto on 01-27-2025 Cholesterol.total/Cholest reyes in HDL [Mass ratio] 3.05 {ratio} [facility] Serum creatinine measurement (mass/volume)Ordered By: Rylie Frausto on 01-27-2025 Creatinine [Mass/Vol] 0.74 mg/dL 0.70-1.20 [facility] Serum globulin measurementOr dered By: Rylie Frausto on 01-27-2025 Globulin (S) [Mass/Vol] 2.7 g/dL 2.2-4.2 [facility] Serum glucose measurement (m ass/volume)Ordered By: Rylie Frausto on 01-27-2025 Glucose [Mass/Vol] 88 mg/dL 70-99 [facility] Serum or plasma alanine mcnamara otransferase (ALT) measurementOrdered By: Rylie Frausto on 01-27-2025 ALT [Catalytic activity/Vol] 28 U/L <35 [facility] Serum or plasma albumin jessica urement (mass/volume)Ordered By: Rylie Frausto on 01-27-2025 Albumin [Mass/Vol] 4.5 g/dL 3.5-5.0 [facility] Serum or plasma albumin/glob ulin mass ratioOrdered By: Rylie Frausto on 01-27-2025 Albumin/Globulin [Mass ratio] 1.7 {ratio} 0.9-2.4 [facility] Serum or plasma alkaline tamy sphatase measurementOrdered By: Rylie Frausto on 01-27-2025 ALP [Catalytic activity/Vol] 83 U/L 35-104 [facility] Serum or plasma calcium jessica urement (mass/volume)Ordered By: Rylie Frausto on 01-27-2025 Calcium [Mass/Vol] 9.4 mg/dL 7.6-11.0 [facility] Serum or plasma cholesterol in HDL measurement (mass/volume)Ordered By: Rylie Frausto on 01-27-2025 Cholesterol in HDL [Mass/Vol] 57 mg/dL >40 [facility] Comment on above: National Cholesterol Education Program (NCEP) guidelines:<40 mg/dL: Low HDL-cholesterol (major risk factor for CHD)>= 60 mg/dL: High HDL-cholesterol (negative risk factor for CHD)HDL-cholesterol is affected by a number of factors, e.g. smoking, exercise, hormones, sex and age. Serum or plasma cholesterol measurement (mass/volume)Ordered By: Rylie Frausto on 01-27-2025 Cholesterol [Mass/Vol] 175 mg/dL <201 [facility] Comment on above: Cholesterol level, D esirable <200 mg/dLBorderline high cholesterol 200-239 mg/dLHigh cholesterol >=240 mg/dLRecommendations of the NCEP Adult Treatment Panel for the following risk-cutoff thresholds for the [place] population. Serum or plasma urea nitroge n measurement (mass/volume)Ordered By: Rylie Frausto on 01-27-2025 Urea nitrogen [Mass/Vol] 15 mg/dL 4-19 [facility] Sodium levelOrdered By: Rylie Frausto on 01-27-2025 Sodium [Moles/Vol] 138 mmol/L 133-145 [facility] TSH DL <= 0.005 mIU/L QnOrde red By: Rylie Frausto on 01-27-2025 TSH Qn 1.800 uIU/mL 0.300-4.200 [facility] Thyroid Stim Hormone (TSH)on 01-27-2025 TSH 1.800 uIU/mL Normal 0.300-4.200 [facility] Comment on above: Performed By: #### L 100.0100, L500.4050, L500.4100, L501.9520 #### [facility] Laboratory [address] [place], [address] Total proteinOrdered By: Uli Frausto on 01-27-2025 Protein [Mass/Vol] 7.2 g/dL 5.9-8.4 [facility] Triglycerides measurementOrd ered By: Rylie Frausto on 01-27-2025 Triglyceride [Mass/Vol] 214 mg/dL High <199 [facility] Comment on above: The drugs N-Acetylcy steine and Metamizole may falsely depress this assay. Normal range: <150 mg/dLBorderline High: 150-199 mg/dLHigh: 200-499 mg/dLVery High: >500 mg/dL White blood cell (WBC) count Ordered By: Rylie Frausto on 01-27-2025 WBC (Bld) [#/Vol] 7.1 10*3/uL 4.4-11.0 [facility] Absolute lymphocyte countOrd ered By: Rylie Frausto on 01-22-2023 Lymphocytes Auto (Unsp spec) [#/Vol] 2.35 10*3/uL 0.83-4.51 [facility] Basophil percentageOrdered B y: Rylie Frausto on 01-22-2023 Basophils/100 WBC (Bld) 1.1 % 0-1 [facility] Bilirubin [Mass/Vol] 0.50 mg/dL 0.20-1.00 [facility] Comment on above: For patients on eltr ombopag therapy, use of Dimension Sweeny TBIL is not recommended. Chloride [Moles/Vol] 105 mmol/L 98-107 [facility] Cholesterol [Mass/Vol] 181 mg/dL <200 [facility] Comment on above: <200 mg/dL Desirable 200-240 mg/dL Borderline >240 mg/dL High Risk Eosinophils/100 WBC (Bld) 1.6 % 0-5 [facility] Glucose [Mass/Vol] 91 mg/dL 74-106 [facility] Neutrophils (Bld) [#/Vol] 3.1 10*3/uL 2.0-7.7 [facility] Neutrophils/100 WBC (Bld) 50.4 % 47-70 [facility] Potassium [Moles/Vol] 4.4 mmol/L 3.5-5.1 [facility] Protein [Mass/Vol] 7.7 g/dL 6.4-8.2 [facility] Sodium [Moles/Vol] 139 mmol/L 136-145 [facility] Triglyceride [Mass/Vol] 94 mg/dL <199 [facility] Comment on above: The drugs N-Acetylcy steine and Metamizole may falsely depress this assay.Serum Triglycerides Reference Interval Normal <150 mg/dL Borderline high 150 - 199 mg/dL High 200 - 499 mg/dL Very High > or = 500 mg/dL WBC (Bld) [#/Vol] 6.2 10*3/uL 4.4-11.0 [facility] Blood erythrocytes count (nu mber/volume)Ordered By: Rylie Frausto on 01-22-2023 RBC (Bld) [#/Vol] 4.63 10*6/uL 4.2-5.4 [facility] Blood hemoglobin measurement (mass/volume)Ordered By: Rylie Frausto on 01-22-2023 Hemoglobin (Bld) [Mass/Vol] 14.0 g/dL 12.0-15.0 [facility] Blood lymphocytes/100 leukoc ytesOrdered By: Rylie Frausto on 01-22-2023 Lymphocytes/100 WBC (Bld) 38.0 % 19-41 [facility] Blood monocytes/100 leukocyt esOrdered By: Rylie Frausto on 01-22-2023 Monocytes/100 WBC (Bld) 7.9 % 0-10 [facility] Blood platelet mean volumeOr dered By: Rylie Frausto on 01-22-2023 Platelet mean volume (Bld) [Entitic vol] 10.0 fL 6.2-12.0 [facility] Determination of erythrocyte mean corpuscular volume (MCV)Ordered By: Rylie Frausto on 01-22-2023 MCV (RBC) [Entitic vol] 91.4 fL 81-99 [facility] Hematocrit Auto (Bld) [Volum e fraction]Ordered By: Rylie Frausto on 01-22-2023 Hematocrit (Bld) [Volume fraction] 42.3 % 37-47 [facility] Laboratory - Chemistry and C hemistry - challengeOrdered By: Rylie Frausto on 01-22-2023 ALP [Catalytic activity/Vol] 89 U/L 45-117 [facility] ALT [Catalytic activity/Vol] 34 U/L 13-56 [facility] CO2 [Moles/Vol] 28.0 mmol/L 21.0-32.0 [facility] Globulin (S) [Mass/Vol] 3.4 g/dL 2.2-4.2 [facility] Urea nitrogen/Creatinine [Mass ratio] 22.5 mg/mg 10-20 [facility] Laboratory - Hematology and Cell countsOrdered By: Rylie Frausto on 01-22-2023 Erythrocyte distribution width (RBC) [Entitic vol] 41.6 fL 35.1-43.9 [facility] Erythrocyte distribution width (RBC) [Ratio] 12.6 % 11.6-14.6 [facility] Immature granulocytes/100 WBC (Bld) 1.000 % 0.0-0.9 [facility] Comment on above: IG% - Immature Granu locytes (promyelocytes, myelocytes and metamyelocytes) > 1% indicates that a LEFT SHIFT is Present. MCH (RBC) [Entitic mass] 30.2 pg 27.0-32.0 [facility] Nucleated RBC/100 WBC (Bld) [Ratio] 0 % 0-5 [facility] MCHC Auto (RBC) [Mass/Vol]Or dered By: Rylie Frausto on 01-22-2023 MCHC (RBC) [Mass/Vol] 33.1 g/dL 32-36 [facility] No Panel InformationOrdered By: Rylie Frausto on 01-22-2023 Estimated GFR (MDRD) Amer 111 mL/min >60 [facility] Comment on above: GFR Calc Estimated GFR (MDRD) Non-Af Amer 91 mL/min >60 [facility] Comment on above: Non- GFR Calc Thyroid Stimulating Hormone (TSH) 1.04 uIU/mL 0.358-3.74 [facility] Platelets bldOrdered By: Uli Frausto on 01-22-2023 Platelets (Bld) [#/Vol] 252 10*3/uL 150-450 [facility] Serum or plasma albumin jessica urement (mass/volume)Ordered By: Rylie Frausto on 01-22-2023 Albumin [Mass/Vol] 4.3 g/dL 3.2-5.0 [facility] Serum or plasma albumin/glob ulin mass ratioOrdered By: yRlie Frausto on 01-22-2023 Albumin/Globulin [Mass ratio] 1.3 {ratio} 0.9-2.4 [facility] Serum or plasma calcium jessica urement (mass/volume)Ordered By: Rylie Frausto on 01-22-2023 Calcium [Mass/Vol] 9.4 mg/dL 8.5-10.1 [facility] Serum or plasma cholesterol in HDL measurement (mass/volume)Ordered By: Rylie Frausto on 01-22-2023 Cholesterol in HDL [Mass/Vol] 58 mg/dL >40 [facility] Comment on above: The drugs N-Acetylcy steine and Metamizole may falsely depress this assay. Reference Range HDL <40 mg/dL Low HDL Cholesterol HDL >or= 60 mg/dL High HDL Cholesterol Serum or plasma cholesterol in VLDL measurement (mass/volume)Ordered By: Rylie Frausto on 01-22-2023 Cholesterol in VLDL [Mass/Vol] 19 mg/dL 5-40 [facility] Serum or plasma creatinine m easurement (mass/volume)Ordered By: Rylie Frausto on 01-22-2023 Creatinine [Mass/Vol] 0.71 mg/dL 0.55-1.02 [facility] Comment on above: The validity of the calculated GFR & GFRAA in patients over 70 years has not been determined. Clinical correlation is essential. Serum or plasma low density lipoprotein (LDL) cholesterol measurement (mass/volume)Ordered By: Rylie Frausto on 01-22-2023 Cholesterol in LDL [Mass/Vol] 104 mg/dL 0-130 [facility] Serum or plasma urea nitroge n measurement (mass/volume)Ordered By: Rylie Frausto on 01-22-2023 Urea nitrogen [Mass/Vol] 16 mg/dL 7-18 [facility] Thin prep Papanicolaou smear with manual screeningOrdered By: Rylie Frausto on 01-22-2023 Thin prep Papanicolaou smear with manual screening 22 U/L 15-37 [facility] Thin prep Papanicolaou smear with manual screening 6 5-15 [facility] Absolute lymphocyte counton 01-23-2022 Lymphocytes Auto (Unsp spec) [#/Vol] 1.91 10*3/uL 0.83-4.51 [facility] Work Phone: Basophil percentageon 2021 Basophils/100 WBC (Bld) 0.8 % 0-1 [facility] Work Phone: Bilirubin [Mass/Vol] 0.40 mg/dL 0.20-1.00 [facility] Work Phone: Comment on above: For patients on eltr ombopag therapy, use of Dimension Sweeny TBIL is not recommended. Chloride [Moles/Vol] 105 mmol/L 98-107 [facility] Work Phone: Cholesterol [Mass/Vol] 196 mg/dL <200 [facility] Work Phone: Comment on above: <200 mg/dL Desirable 200-240 mg/dL Borderline >240 mg/dL High Risk Eosinophils/100 WBC (Bld) 1.7 % 0-5 [facility] Work Phone: Glucose [Mass/Vol] 97 mg/dL 74-106 [facility] Work Phone: Neutrophils (Bld) [#/Vol] 2.9 10*3/uL 2.0-7.7 [facility] Work Phone: Neutrophils/100 WBC (Bld) 54.2 % 47-70 [facility] Work Phone: Potassium [Moles/Vol] 3.6 mmol/L 3.5-5.1 [facility] Work Phone: Protein [Mass/Vol] 8.1 g/dL 6.4-8.2 [facility] Work Phone: Sodium [Moles/Vol] 139 mmol/L 136-145 [facility] Work Phone: Triglyceride [Mass/Vol] 194 mg/dL <199 [facility] Work Phone: Comment on above: The drugs N-Acetylcy steine and Metamizole may falsely depress this assay.Serum Triglycerides Reference Interval Normal <150 mg/dL Borderline high 150 - 199 mg/dL High 200 - 499 mg/dL Very High > or = 500 mg/dL WBC (Bld) [#/Vol] 5.3 10*3/uL 4.4-11.0 [facility] Work Phone: Blood erythrocytes count (nu mber/volume)on 01-23-2022 RBC (Bld) [#/Vol] 4.77 10*6/uL 4.2-5.4 [facility] Work Phone: Blood hemoglobin measurement (mass/volume)on 01-23-2022 Hemoglobin (Bld) [Mass/Vol] 14.4 g/dL 12.0-15.0 [facility] Work Phone: Blood lymphocytes/100 leukoc yteson 01-23-2022 Lymphocytes/100 WBC (Bld) 35.9 % 19-41 [facility] Work Phone: Blood monocytes/100 leukocyt eson 01-23-2022 Monocytes/100 WBC (Bld) 6.8 % 0-10 [facility] Work Phone: Blood platelet mean volumeon 01-23-2022 Platelet mean volume (Bld) [Entitic vol] 9.9 fL 6.2-12.0 [facility] Work Phone: Determination of erythrocyte mean corpuscular volume (MCV)on 01-23-2022 MCV (RBC) [Entitic vol] 89.9 fL 81-99 [facility] Work Phone: Hematocrit Auto (Bld) [Volum e fraction]on 01-23-2022 Hematocrit (Bld) [Volume fraction] 42.9 % 37-47 [facility] Work Phone: Laboratory - Chemistry and C hemistry - challengeon 01-23-2022 ALP [Catalytic activity/Vol] 95 U/L 45-117 [facility] Work Phone: ALT [Catalytic activity/Vol] 38 U/L 13-56 [facility] Work Phone: CO2 [Moles/Vol] 26.0 mmol/L 21.0-32.0 [facility] Work Phone: Globulin (S) [Mass/Vol] 3.7 g/dL 2.2-4.2 [facility] Work Phone: Urea nitrogen/Creatinine [Mass ratio] 20.5 mg/mg 10-20 [facility] Work Phone: Laboratory - Hematology and Cell countson 01-23-2022 Erythrocyte distribution width (RBC) [Entitic vol] 41.8 fL 35.1-43.9 [facility] Work Phone: Erythrocyte distribution width (RBC) [Ratio] 12.8 % 11.6-14.6 [facility] Work Phone: Immature granulocytes/100 WBC (Bld) 0.600 % 0.0-0.9 [facility] Work Phone: Comment on above: IG% - Immature Granu locytes (promyelocytes, myelocytes and metamyelocytes) > 1% indicates that a LEFT SHIFT is Present. MCH (RBC) [Entitic mass] 30.2 pg 27.0-32.0 [facility] Work Phone: Nucleated RBC/100 WBC (Bld) [Ratio] 0 % 0-5 [facility] Work Phone: MCHC Auto (RBC) [Mass/Vol]on 01-23-2022 MCHC (RBC) [Mass/Vol] 33.6 g/dL 32-36 [facility] Work Phone: No Panel Informationon 01-23 Estimated GFR (MDRD) Amer 82 mL/min >60 [facility] Work Phone: Comment on above: GFR Calc Estimated GFR (MDRD) Non-Af Amer 68 mL/min >60 [facility] Work Phone: Comment on above: Non- GFR Calc Thyroid Stimulating Hormone (TSH) 2.00 uIU/mL 0.358-3.74 [facility] Work Phone: Platelets bldon 01-23-2022 Platelets (Bld) [#/Vol] 228 10*3/uL 150-450 [facility] Work Phone: Serum or plasma albumin jessica urement (mass/volume)on 01-23-2022 Albumin [Mass/Vol] 4.4 g/dL 3.2-5.0 [facility] Work Phone: Serum or plasma albumin/glob ulin mass ratioon 01-23-2022 Albumin/Globulin [Mass ratio] 1.2 {ratio} 0.9-2.4 [facility] Work Phone: Serum or plasma calcium jessica urement (mass/volume)on 01-23-2022 Calcium [Mass/Vol] 9.3 mg/dL 8.5-10.1 [facility] Work Phone: Serum or plasma cholesterol in HDL measurement (mass/volume)on 01-23-2022 Cholesterol in HDL [Mass/Vol] 57 mg/dL >40 [facility] Work Phone: Comment on above: The drugs N-Acetylcy steine and Metamizole may falsely depress this assay. Reference Range HDL <40 mg/dL Low HDL Cholesterol HDL >or= 60 mg/dL High HDL Cholesterol Serum or plasma cholesterol in VLDL measurement (mass/volume)on 01-23-2022 Cholesterol in VLDL [Mass/Vol] 39 mg/dL 5-40 [facility] Work Phone: Serum or plasma creatinine m easurement (mass/volume)on 01-23-2022 Creatinine [Mass/Vol] 0.93 mg/dL 0.55-1.02 [facility] Work Phone: Comment on above: The validity of the calculated GFR & GFRAA in patients over 70 years has not been determined. Clinical correlation is essential. Serum or plasma low density lipoprotein (LDL) cholesterol measurement (mass/volume)on 01-23-2022 Cholesterol in LDL [Mass/Vol] 100 mg/dL 0-130 [facility] Work Phone: Serum or plasma urea nitroge n measurement (mass/volume)on 01-23-2022 Urea nitrogen [Mass/Vol] 19 mg/dL 7-18 [facility] Work Phone: Thin prep Papanicolaou smear with manual screeningon 01-23-2022 Thin prep Papanicolaou smear with manual screening 23 U/L 15-37 [facility] Work Phone: Thin prep Papanicolaou smear with manual screening 8 5-15 [facility] Work Phone: Vital Signs Date Time Vital Sign Value Performing Clinician Faci lity 06-24-2025 16:00-0400 Body height 154.94 cm Rlyie Frausto SERVER MANAGER-C Work Phone: [facility] 01-27-2025 16:00-0400 Body mass index (BMI) [Ratio] 24.7 kg/m2 Rylie Frausto SERVER MANAGER-C Work Phone: [facility] 01-27-2025 16:00-0400 Body temperature 97.9 [degF] Rylie Frausto SERVER MANAGER-C Work Phone: [facility] 01-27-2025 16:00-0400 Body weight 59.42 kg Rylie Frausto SERVER MANAGER-C Work Phone: [facility] 01-27-2025 16:00-0400 Diastolic blood pressure 60 mm[Hg] Rylie Frausto SERVER MANAGER-C Work Phone: [facility] 01-27-2025 16:00-0400 Heart rate 71 /min Rylie Frausto SERVER MANAGER-C Work Phone: [facility] 01-27-2025 16:00-0400 Respiratory rate 18 /min Rylie Frausto SERVER MANAGER-C Work Phone: [facility] 01-27-2025 16:00-0400 SaO2% (BldA) [Mass fraction] 98 % Rylie Frausto SERVER MANAGER-C Work Phone: [facility] 01-27-2025 16:00-0400 Systolic blood pressure 122 mm[Hg] Rylie Frausto SERVER MANAGER-C Work Phone: [facility] 01-22-2023 17:05-0400 Body height 154.94 cm [facility] 01-22-2023 17:05-0400 Body mass index (BMI) [Ratio] 25.1 kg/m2 [facility] 01-22-2023 17:05-0400 Body temperature 97.9 [degF] [facility] 01-22-2023 17:05-0400 Body weight 60.32 kg [facility] 01-22-2023 17:05-0400 Diastolic blood pressure 60 mm[Hg] [facility] 01-22-2023 17:05-0400 Heart rate 92 /min [facility] 01-22-2023 17:05-0400 Respiratory rate 18 /min [facility] 01-22-2023 17:05-0400 SaO2% (BldA) [Mass fraction] 97 % [facility] 01-22-2023 17:05-0400 Systolic blood pressure 115 mm[Hg] [facility] 01-23-2022 16:38-0400 Body height 154.94 cm [facility] Work Phone: 01-23-2022 16:38-0400 Body mass index (BMI) [Ratio] 25.1 kg/m2 [facility] Work Phone: 01-23-2022 16:38-0400 Body temperature 97.5 [degF] [facility] Work Phone: 01-23-2022 16:38-0400 Body weight 60.32 kg [facility] Work Phone: 01-23-2022 16:38-0400 Diastolic blood pressure 78 mm[Hg] [facility] Work Phone: 01-23-2022 16:38-0400 Heart rate 75 /min [facility] Work Phone: 01-23-2022 16:38-0400 Respiratory rate 18 /min [facility] Work Phone: 01-23-2022 16:38-0400 SaO2% (BldA) [Mass fraction] 96 % [facility] Work Phone: 01-23-2022 16:38-0400 Systolic blood pressure 150 mm[Hg] [facility] Work Phone: Encounters Encounter Date Encounter Type Care Provider Facility Start: 03-30-2025 ambulatory Shane Kowalski Facility :[facility] Start: 01-27-2025 End: 01-27-2025 ambulatory Rylie FANG Work Phone: -Laboratory Specimen Start: 01-27-2025 End: 01-27-2025 Patient encounter procedure Rylie Frausto SERVER MANAGER-C -Laboratory Specimen Work Phone: Start: 01-27-2025 End: 01-27-2025 ambulatory Rylie Frausto SERVER MANAGER Facility:[facility] Start: 01-22-2023 End: 01-22-2023 ambulatory [facility] Work Phone: Start: 01-22-2023 End: 01-22-2023 Patient encounter procedure [facility]-Laboratory, Specimen Start: 09-11-2022 End: 09-11-2022 ambulatory [facility] Work Phone: Start: 09-11-2022 End: 09-11-2022 Discharged Recurring [facility]-Occupational Therapy Start: 01-23-2022 End: 01-23-2022 Patient encounter procedure [facility]-Laboratory, Specimen Procedures Date Procedure Procedure Detail Performing Clinician Total abdominal hysterectomy TOTAL ABDOMI NAL HYSTERECTOMY Plan of Treatment Date Care Activity Detail Author MG Breast - left Screening [facility] Work Phone: Payers Date Payer Category Payer Self-pay [id number] 2025 Unknown [id number] Unknown [id number] Unknown [id number] Unknown [id number] Social History Date Type Detail Facility Start: 07-05-2020 Tobacco smoking stat [facility] Unknown if ever smoked [facility] Start: 1970 Sex Assigned At Female [facility] Start: 07[facility]05-[facility] Evaluation note 01-27-2025 Note Date & Type Note Facility 01-27-2025 Evaluation note Diagnosis Onset Date Resolution Fibromatosis, Dupuytren's acute January 27, 2025 3:55pm Hypothyroidism acute January 27, 2025 3:55pm Lumbar arthropathy acute January 052024 3:55pm Osteoarthritis of multiple joints acute January 27, 2025 3:55pm Hypertension chronic January 27, 3:55pm [facility] Work Phone: Evaluation note Note Date & Type Note Facility Evaluation note Diagnosis Onset Date Breast cancer screening by mammogram acute Hypothyroidism acute Hypertension chronic [facility] Work Phone: Evaluation note Note Date & Type Note Facility Evaluation note No assessment information availa ble [facility] Work Phone: Evaluation note Note Date & Type Note Facility Evaluation note Diagnosis Onset Date Hypothyroidism acute Osteoarthritis of multiple joints acute Hypertension chronic [facility] Work Phone: Reason for referral (narrative) Note Date & Type Note Facility Reason for referral (narrative) No reason for referral information available [facility] Work Phone: Chief Complaint and Reason for Visit Chief Complaint medication refills & labs Reason for Visit Breast cancer screen ing by mammogram Hypothyroidism Hypertension Chief Complaint UNITLATERAL OSTEOART HRITIS RIGHT HAND / PT HAS RX Chief Complaint medication refills & Labs Reason for Visit Hypothyroidism Osteoarthritis of multiple joints Hypertension Chief Complaint Admit Date medication refills/Labs January 27, 2025 3:55pm Reason for Visit Admit Date Fibromatosis, Dupuytren's January 27 3:55pm Hypothyroidism January 27, 2025 3:55 pm Lumbar arthropathy January 27, 2025 3:55 pm Osteoarthritis of multiple joints January [id number] 3:55pm Hypertension January 27, 2025 3:55 pm Family History No Family History Records Found [...] Quiñonez MD Family Provider Active Rylie Frausto SERVER MANAGER, SERVER MANAGER-C Primary Care Provider Active Team Status: Inactive Member Role Status Dates Dr. Juan Myrick MD Attending Provider, Referring Provider Active Rylie Jett SERVER MANAGER, SERVER MANAGER-C Primary Care Provider Active Team Status: Inactive Member Role Status Dates Rylie Frausto SERVER MANAGER, SERVER MANAGER-C Primary Care Pr ovider, Attending Provider, Referring Provider Active Team Status: Inactive Member Role Status Dates Rylie Frausto SERVER MANAGER, SERVER MANAGER-C Primary Care Provider, Attend ing Provider Active Team Status: Active Member Role/Relationship Status Dates Dr. Judson Quiñonez MD Family Provider Active Rylie Jett SERVER MANAGER, SERVER MANAGER-C Primary Care Provider Active Team Status: Inactive Member Role/Relationship Status Dates Rylieho Frausto SERVER MANAGER, SERVER MANAGER-C Primary Care Provider Active Start: January 27, 2025 End: January 27, 2025 Rylieho Frausto SERVER MANAGER, SERVER MANAGER-C Attending Provider Active Start: January 27, 2025 End: January 27, 2025 Rylie Frausto SERVER MANAGER, SERVER MANAGER-C Referring Provider Active Start: January 27, 2025 End: January 27, 2025 Team Status: Inactive Member Role/Relationship Status Dates Rylie Frausto SERVER MANAGER, SERVER MANAGER-C Primary Care Provider Active Start: January 27, 2025 End: January 27, 2025 Rylie Frausto SERVER MANAGER, SERVER MANAGER-C Attending Provider Active Start: January 27, 2025 End: January 27, 2025 Yrlie Frausto SERVER MANAGER, SERVER MANAGER-C Referring Provider Active Start: January 27, 2025 End: January 27, 2025 INFORMATION SOURCE (unrecogn ized section and content) DATE CREATED AUTHOR 03/28/2025 [facility] FOR RECORDS PERTAINING TO PATIENTS WHO ARE [...] BE BASED ON THE PRIMARY CLINICAL RECORDS. [employer] provides no warranty or guarantee of the accuracy or completeness of information in this document.
[2025-03-30] MEDS: Lactated Ringers 1,000 ML 15 ML IV (08:31)
--- NOTE | 2025-03-30 09:12 | PRE.ANES_ITS ---
ASA Classification* ASA Classification ASA Classification: 2 Assessment & Plan Anesthesia* Anesthesia Assessment Anesthesia Assessment: Discussed sedation and/or anesthesia options, risks, benefits, and alternatives with patient/parents/legal guardian/POA. Questions invited. The patient/parents/legal guardian/POA seems to understand and agrees to proceed with anesthesia plan. Reviewed the physical assessment, medical history, allergy history and patient home medications list prior to surgery/procedure/anesthetic and documented any changes. Performed airway and anesthesia risk assessments. Anesthesia Type Anesthesia Type: MAC History Source History Obtained from:: Patient and Chart Anesthesia Focused Assessment* Temperature: 98 F Pulse Rate: 71 Blood Pressure: 177/95 Respiratory Rate: 14 Pulse Ox: 99 Airway Assessment Mouth opens: 2 cm Mallampati Score: III Teeth Condition: Partial and Upper Neck Range of motion (ROM): Full ROM Labs Anesthesia Preop lab: CBC WBC 7.1 K/mm3 (4.4-11.0) 01/27/25 23:59 01/27/25 RBC 4.29 M/mm3 (4.2-5.4) 01/27/25 23:59 01/27/25 Hgb 13.3 g/dL (12.0-15.0) 01/27/25 23:59 01/27/25 Hct 39.0 % (37-47) 01/27/25 23:59 01/27/25 Plt Count 235 K/mm3 (150-450) 01/27/25 23:59 01/27/25 CHEMISTRY Potassium 4.0 mmol/L (3.3-5.1) 01/27/25 23:59 01/27/25 Sodium 138 mmol/L (133-145) 01/27/25 23:59 01/27/25 BUN 15 mg/dL (4-19) 01/27/25 23:59 01/27/25 Creatinine 0.74 mg/dL (0.70-1.20) 01/27/25 23:59 01/27/25 Glucose 88 mg/dL (70-99) 01/27/25 23:59 01/27/25 TSH 1.800 uIU/mL (0.300-4.200) 01/27/25 23:59 01/05 11/28 COAG Pre-Assessment Diagnosis/Proposed Procedure Planned Operative Procedure(s): COLONOSCOPY Anesthesia History Anesthesia History - public relations coordinator: Anesthesia History - public relations coordinator Hx Hospitalization No 03/26/25 09:54 Any Problems With Anesthesia No 03/26/25 09:54 Cholinesterase deficiency No 03/26/25 09:54 You/Your Family Experience No 03/26/25 09:54 fever (hyperthermia) with Relationship Recent Exposure to Contagious No 03/30/25 08:21 Disease Does patient have nerve No 03/26/25 09:54 stimulator Patient instructed to have device shut off --Does patient have Pacemaker No 03/30/25 08:21 or ICD? When Was Last Pacemaker Check QUESTION #4 FULL TEXT: You/Your Family Experience fever (hyperthermia) with Anesthesia Last Oral Intake Last Oral intake: Last Oral Intake NPO since 05:00 03/30/25 08:21 Meds taken in AM with sips of Yes 03/30/25 08:21 water? Meds patient instructed to prep 03/30/25 08:21 take am of surgery PONV PONV - public relations coordinator: PONV - public relations coordinator Female Yes 03/26/25 09:54 HX of Motion Sickness No 03/26/25 09:54 HX of N/V After Surgery Yes 03/26/25 09:54 Non-Smoker Yes 03/26/25 09:54 Duration of Surgery greater No 03/26/25 09:54 than 60 minutes Number of Risk Factors 3 03/26/25 09:54 PONV Score Moderate Risk 03/26/25 09:54 Height & Weight Height & Weight: Anesthesia: Height & Weight Height 5 ft 1 in 03/30/25 08:21 Weight: 57 kg 03/30/25 08:21 Body Mass Index (BMI) 23.7 03/30/25 08:21 Respiratory Assessment Respiratory Assessment - public relations coordinator: Respiratory Tract Infection Hx - public relations coordinator Hx Respiratory Tract Infection No 03/26/25 09:54 STOP Sleep Apnea STOP Sleep Apnea - public relations coordinator: STOP Sleep Apnea - public relations coordinator Hx Hypertension Yes 03/26/25 09:54 Hx Sleep Apnea No 03/26/25 09:54 CPAP BIPAP Do you snore loudly (louder No 03/26/25 09:54 than talking or can be heard Do you often feel tired/ No 03/26/25 09:54 fatigued/ sleepy during daytime? Has anyone observed you stop No 03/26/25 09:54 breathing during sleep? STOP Results Negative 03/26/25 09:54 QUESTION #5 FULL TEXT : Do you snore loudly (louder than talking or can be heard through closed doors)? Tobacco Use History Tobacco Use History - public relations coordinator: Tobacco Use History - public relations coordinator Tobacco Use Smoking Status Never smoker 03/26/25 09:54 Hx Tobacco Use No 03/26/25 09:54 Years Smoking Packs Smoked per Day Smoking Cessation Date was within the last 15 years Hx Smoking Cessation Date Hx Smoking Cessation Counseling Hematologic Medial History Hematologic Hx - public relations coordinator: Hematologic Medical Hx - paralegals Hx of Blood Transfusion No 03/26/25 09:54 Hx of Transfusion in last 3 No 03/26/25 09:54 Months Date of Last Transfusion (if within last 3 months) Ever experience any problems No 03/26/25 09:54 with transfusion(s)? Specify any problems Hx of Preganancy in last 3 No 03/26/25 09:54 Months Nurse Filling Out Transfusion [facility] 03/26/25 09:54 & Questions: Date: 03/26/25 03/26/25 09:54 Time: 09:59 03/26/25 09:54 Patient unable to answer at this time (ie. confused, unrespo /Reproduction History /Reproductive History - public relations coordinator: /Reproductive Hx- public relations coordinator Hx Now No 03/26/25 09:54 Gestational Age (in weeks): EDC: Hx Hx Para Hx Section SAB Active Medications Active Medications: Current Medications Generic Name Dose Route Start Last Admin Trade Name Margarito PRN Reason Stop Dose Admin Lactated Ringer's 1,000 mls @ 15 mls/hr 03/30/25 08:00 03/30/25 08:31 IV 15 mls/hr .Q48H WADE Administration PFSH Medical History Wears partial dentures Thyroid disease Arthritis Migraine headache Restless legs History of GI bleed History of ulceration History of IBS Non-smoker Reactive arthropathy of wrist Seasonal allergies Hypertension Murmur IUD ASSURES (COILS) HAS HAD MANY INFECTIONS Fibroids Hx of migraines Hypothyroidism Home Medications ?Medication ?Instructions ?Recorded ?Last Taken ?Type atorvastatin 40 mg tablet 40 mg PO DAILY #90 tabs 01/05 11/28 Unknown Rx losartan 50 mg tablet 50 mg PO DAILY #90 tabs 01/05 11/28 Unknown Rx meloxicam 15 mg tablet 15 mg PO QDAY #90 tabs 01/2703/28/25 Rx tramadol 50 mg tablet 50 mg PO BID PRN pain (scale score 01/27/25 03/28/25 Rx 7-10) #60 tabs levothyroxine 50 mcg tablet 50 mcg PO DAILY #90 tabs 0 01/29/25 Unknown Rx Allergy/AdvReac Type Severity Reaction Status Date / Time metoclopramide (From Reglan) Allergy Severe SEIZURE Verified 03/30/25 08:20 amoxicillin (From Augmentin) AdvReac Severe diarrhea Verified 03/30/25 08:20 and cramping clavulanic acid (From AdvReac Severe diarrhea Verified 03/30/25 08:20 Augmentin) and cramping Family History Mother Hypertension High cholesterol Other Cancer Diverticulitis Hx of migraines Multiple sclerosis Pancreatic cancer Surgical History History of hand surgery History of bilateral cataract extraction TOTAL ABDOMINAL HYSTERECTOMY C SECT X2 H/O prior ablation treatment FIBROID REMOVED OCTOBER 2012 Social History Smoking Status: Never smoker alcohol intake: current substance use type: does not use Review of Systems (Anesthesia) ROS Narrative System reviewed and no additional complaints, except as documented.
--- NOTE | 2025-03-30 09:58 | PCM.POST.ANE ---
Anesthesia: Postop Eval I Current Vital Signs Temperature: 97.4 F Pulse Rate: 70 Blood Pressure: 106/67 Respiratory Rate: 16 Pulse Ox: 97 Oxygen Delivery Method: Room Air Assessment Airway patent: Yes Spontaneous unlabored respirations: Yes Mental status: Asleep nausea: No Vomiting: No Anesthesia Complication: No Fluid Hydration Crystalloid volume administer (ml): 500 Total IV fluid infused: 500 Progress Note Anesthesia document: Postop Eval 1 completed: Yes
--- NOTE | 2025-03-30 09:59 | OP.COLON_ITS ---
Patient Name: Mily Wood Procedure Date: 03/30/2025 9:17 AM Date of : 1970 Age: 54 Procedure: Colonoscopy Indications: Screening for colorectal malignant neoplasm Providers: Shane Kowalski DO Referring MD: Rylie Frausto NP Medicines: Monitored Anesthesia Care Patient Profile: This is a 54 year old female. Refer to note in patient chart for documentation of history and physical. Last Colonoscopy: none. The patient's first colonoscopy is today. Complications: No immediate complications. Procedure: Pre-Anesthesia Assessment: - Prior to the procedure, a History and Physical was performed, and patient medications and allergies were reviewed. The patient is competent. The risks and benefits of the procedure and the sedation options and risks were discussed with the patient. All questions were answered and informed consent was obtained. Patient identification and proposed procedure were verified by the physician in the pre-procedure area. Mental Status Examination: alert and oriented. Airway Examination: normal oropharyngeal airway and neck mobility. Respiratory Examination: clear to auscultation. CV Examination: normal. ASA Grade Assessment: II - A patient with mild systemic disease. After reviewing the risks and benefits, the patient was deemed in satisfactory condition to undergo the procedure. The anesthesia plan was to use monitored anesthesia care (MAC). Immediately prior to administration of medications, the patient was re-assessed for adequacy to receive sedatives. The heart rate, respiratory rate, oxygen saturations, blood pressure, adequacy of pulmonary ventilation, and response to care were monitored throughout the procedure. The physical status of the patient was re-assessed after the procedure. After I obtained informed consent, the scope was passed under direct vision. Throughout the procedure, the patient's blood pressure, pulse, and oxygen saturations were monitored continuously. The colonoscope was introduced through the anus and advanced to the cecum, identified by appendiceal orifice and ileocecal valve. The colonoscopy was performed without difficulty. The patient tolerated the procedure well. The quality of the bowel preparation was adequate. Scope In: 9:34:47 AM Scope Withdrawal Time 0 hours 7 minutes 17 seconds Scope Out: 9:48:31 AM Total Procedure Duration Time 0 hours 13 minutes 44 seconds Findings: The perianal and digital rectal examinations were normal. A few small-mouthed diverticula were found in the recto-sigmoid colon. The exam was otherwise without abnormality on direct and retroflexion views. Impression: - Diverticulosis in the recto-sigmoid colon. - The examination was otherwise normal on direct and retroflexion views. - No specimens collected. Recommendation: - Discharge patient to home. - Resume previous diet. - Continue present medications. - Repeat colonoscopy in 10 years for screening purposes. Procedure Code(s): --- Professional --- G0121, Colorectal cancer screening; colonoscopy on individual not meeting criteria for high risk CPT copyright 2021 [employer]. All rights reserved. The codes documented in this report are preliminary and upon furniture dipper review may be revised to meet current compliance requirements. Shane Kowalski DO 03/30/2025 9:59:03 AM This report has been signed electronically. Number of Addenda: 0 Note Initiated On: 03/30/2025 9:17 AM
--- NOTE | 2025-03-30 09:59 | OP.PROVAT_ITS ---
03/30/2025 Rylie Frausto NP [facility] [address] [place] [id number] Re : Colonoscopy procedure for Mily Wood Dear Ms. Frausto This procedure was performed on Sunday, March 30, 2025. My impressions and recommendations are as follows: Impressions : - Diverticulosis in the recto-sigmoid colon. - The examination was otherwise normal on direct and retroflexion views. - No specimens collected. Recommendations : - Discharge patient to home. - Resume previous diet. - Continue present medications. - Repeat colonoscopy in 10 years for screening purposes. My findings are described in the full procedure note, which is enclosed. If I can be of further assistance, please feel free to contact me at . Sincerely, Shane Kowalski, 03/30/2025 9:59:03 AM This report has been signed electronically.
--- NOTE | 2025-03-30 10:32 | PCM.POSTANE2 ---
Anesthesia Postop Eval I Sum Postop Eval Completion status Anesthesia document: Postop Eval 1 completed: Yes Anesthesia Postop Eval I Summary Anesthesia Postop Eval I Summary: Anesthesia Postop Eval I: Assessment Summary Airway patent Yes 03/30/25 09:59 [email or web address] Spontaneous unlabored Yes 03/30/25 09:59 [email or web address] respirations Mental status Asleep 03/30/25 09:59 [email or web address] nausea No 03/30/25 09:59 [email or web address] Vomiting No 03/30/25 09:59 [email or web address] Anesthesia Postop Eval I: Fluid Summary Crystalloid volume administer 500 03/30/25 09:59 [email or web address] (ml) Colloids volume administered ( ml) Blood Product volume administered (ml) Total IV fluid infused 500 03/30/25 09:59 [email or web address] Anesthesia Postop Eval I: Summary Notes Anesthesia Complication No 03/30/25 09:59 [email or web address] Anesthesia Complication Comment: Post-operative progress note Anesthesia: Postop Eval II Evaluation Mental status: Awake Pain Level: 0 nausea: No Vomiting: No Complications Anesthesia Complication: No
== END 2025-03-30 10:51 | disposition home or self-care (01) ==
LOC: EN 07:56 → AC 07:57
PROVIDERS: PCP Nurse Practitioner; Referring Provider Nurse Practitioner; Visit Provider Internal Medicine Gastroenterology
PROC: 0DJD8ZZ Inspection of Lower Intestinal Tract, Via Natural or Artificial Opening Endoscopic (ICD-10-PCS; CPT 45378; principal; 2025-03-30 09:10)
DX: Z12.11 Encounter for screening for malignant neoplasm of colon (principal); K57.30 Diverticulosis of large intestine without perforation or abscess without bleeding; I10 Essential (primary) hypertension; E03.9 Hypothyroidism, unspecified; M19.90 Unspecified osteoarthritis, unspecified site; Z87.19 Personal history of other diseases of the digestive system; Z79.890 Hormone replacement therapy; Z79.899 Other long term (current) drug therapy
CPT/HCPCS: 45378; J2405

== ENCOUNTER → 2025-06-22 | Outpatient (CLI) | payer BC, SELFPAY ==
--- NOTE | 2025-06-22 11:56 | BI_ITS ---
EXAM: SCRN MAMM (CAD)W/LIONEL BILAT DATE: 06/22/2025 CLINICAL HISTORY: F, Age 54 y/o , SCREENING TECHNIQUE: Procedure Code: [id number] Modality: MG Procedure: SCRN MAMM (CAD)W/LIONEL BILAT COMPARISON: Prior exam(s) were compared FINDINGS: TISSUE DENSITY: The breasts are heterogeneously dense, which may obscure small masses. Bilateral Breast Mammographic Findings: No significant masses, calcifications or other abnormalities are identified. BI/SCRN MAMM (CAD)W/LIONEL BILAT IMPRESSION: No mammographic evidence of malignancy in either breast. OVERALL FINAL ASSESSMENT BI-RADS 1: NEGATIVE. RECOMMENDATION: Routine annual follow-up in 1 Year Additional Recommendation none A letter with findings and recommendations will be mailed to the patient. Reading Location: [id number]
== END | disposition home or self-care (01) ==
LOC: OPBI 11:55
PROVIDERS: PCP Nurse Practitioner; Referring Provider Nurse Practitioner; Visit Provider Nurse Practitioner
DX: Z12.31 Encounter for screening mammogram for malignant neoplasm of breast (principal)
CPT/HCPCS: 77063; 77067